=== PATIENT | female | born 1980 | race African-American/Black ===

== ENCOUNTER 2020-08-29 14:47 | Inpatient (IN) | payer OTHER, SELFPAY ==
--- NOTE | 2020-08-29 15:26 | ED_ITS ---
HPI - Psych General Chief Complaint: Psychiatric Symptoms Stated Complaint: crisis Time Seen by Provider: 08/29/20 15:26 History of Present Illness HPI Narrative: Patient just got out of [facility]. She was there for detox. Got into an argument and questionably thought about wanting to kill herself. Patient was sent to the emergency department for further evaluation. Patient denies having any specific plans. She denies any recreational drug use today. Denies any alcohol. No coughing or congestion or upper respiratory symptoms. Patient currently does not want to kill herself. She said she has no plans. Denies any alcohol abuse Review of Systems Review of Systems: Constitutional: No Weight loss, No Fever, No Chills, No Night Sweats, No Fatigue, No Malaise ENT/Mouth: No Hearing loss, No Ear Pain, No Nasal Congestion, No Sinus Pain, No Hoarseness, No sore throat, No Rhinorrhea, No Swallowing Difficulty Eyes: No Eye Pain, No Swelling, No Redness, No Foreign Body, No Discharge, No Vision Changes Cardiovascular: No Chest Pain, No SOB, No Dyspnea on Exertion, No Orthopnea, No Edema, No Palpitations Respiratory: No Cough, No Sputum, No Wheezing, No Smoke Exposure, No Dyspnea Gastrointestinal: No Nausea, No Vomiting, No Diarrhea, No Constipation, No abdominal Pain, No Hematochezia, No Melena Genitourinary: no irregular bleeding, No Dysuria, No Urinary Frequency, No Hematuria, No Urinary Incontinence, No Urgency, No Flank Pain, No Urinary Flow Changes, No Hesitancy Musculoskeletal: No joint pain, No Myalgias, No Joint Swelling Skin: No Skin Lesions, No rash Neuro: No Weakness, No Numbness, No Paresthesias, No Loss of Consciousness, No Dizziness, No Headache Psych: No Anxiety/Panic, No Depression, No SI/HI/AH/VH, No Social Issues, Heme/Lymph: No Bruising, No Bleeding,No Lymphadenopathy Endocrine: No Polyuria, No Polydipsia, No Temperature Intolerance [facility] Past Medical History Medical History (Updated 08/29/20 @ 15:53 by Jayne Short) Achilles tendinitis Asthma Sciatica Social History Social History Alcohol intake: former Smoking Status: Current every day smoker Smoked in Last 30 Days: Yes Use of substances other than those prescribed or required for medical reasons: Yes Substance Use Type: Crack/Cocaine and Heroin Substance Use Frequency: Chronic Longstanding Last Used Substance: Weeks (ago) Any prior treatment program specific to substance use: Yes Physical Exam Vital Signs: Vital Signs: Last Vital Signs Temp 98.4 F 08/29/20 15:46 Pulse 99 08/29/20 15:46 Resp 20 08/29/20 15:46 BP 148/88 H 08/29/20 15:46 Pulse Ox 96 08/29/20 15:46 Body Mass Index 48.3 Appearance: Alert. Oriented X3. No acute distress. Eyes: Pupils equal, round and reactive to light. ENT: Pharynx normal. Neck: Normal inspection. Neck supple. No lymph nodes noted. No crepitus CVS: Normal heart rate and rhythm. Pulses normal. Normal S1 and S2 Respiratory: No respiratory distress. Breath sounds normal. No Wheezing. No rales Abdomen: Soft and nontender. No rigidity. No distention. good BS x4 Skin: Skin warm and dry. Normal skin color. Normal skin turgor. Extremities: No lower extremity edema. Neurovascular intact to all extremities. No Lacerations. No Rash Neuro: Oriented X 3. No motor deficit. No sensory deficit. Moving all extermities. No slurred speech MDM - Psych MDM Narrative Medical decision making narrative: Patient medically cleared. Awaiting crisis evaluation. Restraints Face to Face Assessment: Face to Face Assessment: Current Situation: After assessment of the patient, a review of the pertinent medical record and a discussion with nursing staff, I feel the patient requires a restrain intervention. Reaction To: [] Medical Condition: [] Behavioral State: [] Continued Need: [] Lab Data Result diagrams: 08/29/20 16:05 08/29/20 16:05 Labs: Lab Results 08/29/20 Range/Units 16:05 WBC 7.4 (4.8-10.8) X10*3/uL RBC 4.16 L (4.20-5.50) X10*6/uL Hgb 12.1 (12.0-16.0) g/dl Hct 37.7 (37-47) % MCV 90.6 (80-98) fL MCH 29.1 (27.0-33.0) pg MCHC 32.1 (31.0-35.0) g/dl RDW 13.2 (11.0-16.0) % Plt Count 286 (160-400) X10*3/uL MPV 9.4 (9.4-12.3) fL Immature Gran % (Auto) 0.4 (0.0-0.4) % Neut % (Auto) 69.0 (45-73) % Lymph % (Auto) 20.1 (20-40) % Hale % (Auto) 5.1 (2-11) % Eos % (Auto) 4.9 H (0-4) % Baso % (Auto) 0.5 (0-2) % Lymph # (Auto) 1.5 (1.2-4.9) X10*3/uL Hale # (Auto) 0.4 (0.1-1.2) X10*3/uL Eos # (Auto) 0.4 (0.0-0.4) X10*3/uL Baso # (Auto) 0.0 (0.0-0.2) X10*3/uL Abs Immat Gran (auto) 0.03 (0.00-0.03) X10*3/uL Absolute Neuts (auto) 5.1 (2.0-8.3) X10*3/uL Absolute Nucleated RBC 0.000 (0.0-0.012) X10*3/uL Nucleated RBC % (auto) 0.0 (0.0-0.2) /100WBC Discharge Plan Discharge Clinical Impression: Suicidal ideation
[2020-08-29 15:46] VITALS: BP 148/88; PULSE 99; RESP 20; TEMP 36.9; O2SAT 96; BMI 48.3
[2020-08-29 16:00] VITALS: RESP 20
[2020-08-29 16:11] LABS: MANUAL DIFF FLAG NO
[2020-08-29 16:12] LABS: Basophils Percent Auto 0.5 % (0-2); Eosinophils Absolute Auto 0.4 X10*3/uL (0.0-0.4); Eosinophils Percent Auto 4.9 % (0-4); Hematocrit 37.7 % (37-47); Hemoglobin 12.1 g/dl (12.0-16.0); Imm Gran Abs Auto 0.03 X10*3/uL (0.00-0.03); Imm Gran Pct Auto 0.4 % (0.0-0.4); Lymphocytes Absolute Auto 1.5 X10*3/uL (1.2-4.9); Lymphocytes Percent Auto 20.1 % (20-40); Mean Corpuscular HGB Conc 32.1 g/dl (31.0-35.0); Mean Corpuscular Hemoglobin 29.1 pg (27.0-33.0); Mean Corpuscular Volume 90.6 fL (80-98); Mean Platelet Volume 9.4 fL (9.4-12.3); Monocytes Absolute Auto 0.4 X10*3/uL (0.1-1.2); Monocytes Percent Auto 5.1 % (2-11); Neutrophils Absolute Auto 5.1 X10*3/uL (2.0-8.3); Platelet Count 286 X10*3/uL (160-400); Red Blood Count 4.16 X10*6/uL (4.20-5.50); Red Cell Distribution Width 13.2 % (11.0-16.0); White Blood Count 7.4 X10*3/uL (4.8-10.8)
[2020-08-29 16:36] LABS: Ethanol < 10 mg/dL
[2020-08-29 16:38] LABS: Amphetamine Screen Urine Not Detected (Not Detect); Barbiturates, Urine Not Detected (Not Detect); Benzodiazepines Screen Urine Not Detected (Not Detect); Cannabinoid Screen Urine POSITIVE (Not Detect); Cocaine Screen Urine Not Detected (Not Detect); Opiate Screen Urine Not Detected (Not Detect); Phencyclidine Screen Urine Not Detected (Not Detect)
--- NOTE | 2020-08-29 16:40 | PC.NURSE ---
Med list faxed to pharmacy for med rec
[2020-08-29 16:43] LABS: Alanine Aminotransferase 34 U/L (0-31); Albumin Level 4.7 g/dL (3.5-5.0); Alkaline Phosphatase 94 U/L (39-117); Anion Gap 12 (12-20); Aspartate Amino Transferase 26 U/L (5-31); Bilirubin Total 0.3 mg/dL (0.0-1.0); Blood Urea Nitrogen 17 mg/dL (9-16); Calcium 9.4 mg/dL (8.4-10.2); Carbon Dioxide 27 mmol/L (22-29); Chloride 103 mmol/L (96-108); Creatinine Clr Calc Pharmacy 97.5; Estimated Glomerular Filt Rate > 60; Glucose Random 93 mg/dL (60-115); Potassium 4.2 mmol/l (3.3-5.1); Salicylate < 5.0 mg/dL (15-30); Sodium 138 mmol/L (135-145); Total Protein 7.8 g/dL (6.5-8.0)
--- NOTE | 2020-08-29 16:52 | PC.NURSE ---
[facility] Faxed. Pt continues to be pressured, on telephone, cooperative w/ care.
[2020-08-29 16:55] LABS: Acetaminophen LAB < 1 mcg/mL (<30)
--- NOTE | 2020-08-29 17:06 | PC.NURSE ---
[facility] called. Pt in room, coloring.
[2020-08-29 17:55] LABS: UPreg QC Valid YES; Urine Pregnancy NEGATIVE (NEGATIVE)
[2020-08-29 18:00] VITALS: RESP 20
[2020-08-29] MEDS: QUEtiapine Fumarate 25 MG TABLET PO (18:26)
[2020-08-29 18:31] VITALS: BP 147/90; PULSE 82
[2020-08-29] MEDS: cloNIDine HCL 0.1 MG TABLET PO (18:31)
--- NOTE | 2020-08-29 18:32 | PC.NURSE ---
Pt wearing Hijab- pt states she feels strongly that she needs to wear for yazdanism reasons. Pt denies SI. Reviewed w/ charge nurse, who spoke w/ boiler house supervisor. At this time, with the level of staffing available, pt may wear Hijab if closely monitored. Pt aware that this may change if staffing does not support current level of monitoring.
--- NOTE | 2020-08-29 18:56 | PC.NURSE ---
Report received. PT is standing at the nurse's station asking to use the phone. Calm and cooperative. PT waiting to be seen by [facility].
--- NOTE | 2020-08-29 19:22 | PC.NURSE ---
CARE team meeting with patient.
[2020-08-29 20:39] VITALS: BP 139/82; PULSE 80; RESP 18
[2020-08-29 20:41] VITALS: BP 139/80; PULSE 80
[2020-08-29] MEDS: Prazosin HCL 1 MG CAPSULE 3 MG PO (20:41)
[2020-08-29] MEDS: HaloperidoL 1 MG TABLET 2 MG PO (20:41)
[2020-08-29] MEDS: Gabapentin 400 MG CAPSULE 800 MG PO (20:41)
[2020-08-29] MEDS: OXcarbazepine 300 MG TABLET PO (20:41)
[2020-08-29] MEDS: Amitriptyline HCl 25 MG TABLET PO (20:41)
[2020-08-29] MEDS: traZODone HCL 100 MG TABLET PO (20:41)
--- NOTE | 2020-08-29 21:14 | PC.NURSE ---
Pt currently resting in bed, no complaints at this time, calm, cooperative.
--- NOTE | 2020-08-29 21:34 | MHC.CARE ---
Bedsearch note: CARE team completed bedsearch with 50 mile radius. The following units have no available female inpatient beds: [address] ([place]) [facility] ([place]) [facility] ([place]) [facility] ([place] and [place]) [facility] [place] (not open to referrals outside [place]) [facility] ([place]) reports they have one female bed left and are accepting referrals. CARE team will fax eval once complete. CARE team updated pod.
--- NOTE | 2020-08-29 22:41 | MHC.CARE ---
CARE team contacted [facility] at 19:00 re: pt who had been referred for crisis evaluation at 17:06. [facility] clothing worker reported that a clinician would not be available to evaluate the pt for a few hours. This keno writer / runner informed the worker that due to [facility]'s failure to evaluate the pt within the contracted time period that pt will be evaluated by the CARE team. [facility] will contact the insurance company to inform them that they were unable to evaluate the pt in a timely fashion so that an inpt psych prior auth can be acquired by the CARE team if necessary. This keno writer / runner evaluated pt with disposition for a voluntary inpt psychiatric admission. Pt is not at high risk for harm to self or others and her judgment is not impaired to the point where she would place herself in imminent risk for harm. Pt is agreeable to admission. ED physician is in agreement with plan of care. [facility] called to relay information that [facility] was called ([phone]) and spoke to Olga Lidia re: clinical being provided to them for prior auth by CARE team. [facility] has 1 female bed available this evening. Eval, labs, nursing notes, and vitals were faxed to [phone] at 22:35
--- NOTE | 2020-08-30 04:44 | PC.NURSE ---
PT woke up with complaints of not being able to fall back asleep. PT requested PRN medications for sleep but none were available as she took them all last night. Nurse suggested to PT that she try laying down for a little before asking the provider to order more medications. PT agreed to plan and went back to her room.
[2020-08-30 06:26] VITALS: RESP 18
--- NOTE | 2020-08-30 06:57 | PC.NURSE ---
Report received, pt currently sleeping, respirations even and unlabored, in no apparent distress. Pt is inpatient bedsearch.
[2020-08-30 10:02] VITALS: BP 133/61; PULSE 78; RESP 18; TEMP 35.8; O2SAT 96
[2020-08-30] MEDS: Nicotine 21 MG PATCH.TD24 TRANSDERMA (10:28)
[2020-08-30] MEDS: Gabapentin 400 MG CAPSULE 800 MG PO ×3 (10:29→21:02)
[2020-08-30] MEDS: HaloperidoL 1 MG TABLET 2 MG PO ×2 (10:29→21:00)
[2020-08-30] MEDS: buPROPion HCl XL 300 MG TAB.ER.24H PO (10:29)
[2020-08-30] MEDS: OXcarbazepine 300 MG TABLET PO ×2 (10:29→21:01)
[2020-08-30] MEDS: Buprenorphine HCL 2 MG TAB.SUBL 4 MG SUBLINGUAL (10:53)
--- NOTE | 2020-08-30 10:54 | MHC.CARE ---
Per [facility] no beds today, until Tuesday, please fax on Tuesday . Per bedsearch from second shift last night pts bedsearch is exhausted based on no female beds in list provided see CARE team note from last night).
[2020-08-30] MEDS: Metoclopramide HCl 10 MG TABLET PO (15:50)
--- NOTE | 2020-08-30 15:52 | PC.NURSE ---
PT currently resting, calm and cooperative, pt has thrown up multiple times today, medicated per emar. Pt denies other complaints, pleasant in conversation.
[2020-08-30 16:34] VITALS: BP 149/83; PULSE 66; RESP 20; TEMP 37.1; O2SAT 97
--- NOTE | 2020-08-30 18:54 | PC.NURSE ---
Report received. PT asked to take a shower. PT provided with bathing supplies. Calm and cooperative. Inpatient bed search in progress.
[2020-08-30 21:01] VITALS: BP 149/81; PULSE 88; RESP 20; TEMP 37.1; O2SAT 95
[2020-08-30] MEDS: cloNIDine HCL 0.1 MG TABLET PO (21:01)
[2020-08-30 21:03] VITALS: BP 149/81; PULSE 88
[2020-08-30] MEDS: Prazosin HCL 1 MG CAPSULE 3 MG PO (21:03)
[2020-08-30] MEDS: Amitriptyline HCl 25 MG TABLET PO (21:04)
--- NOTE | 2020-08-30 21:50 | PC.NURSE ---
PT has been vomiting all day after eating or drinking anything. PT received her night time meds with lidia helena and immediately started vomiting afterwards. PT's pills were visible and whole in the vomit bag provided to her prior to vomiting. Provider came to assess PT who reported no other complaints besides uncontrolled vomiting.
[2020-08-30] MEDS: diphenhydrAMINE HCL 25 MG TABLET PO (21:55)
[2020-08-31] VITALS (7 sets, daily range): BP systolic 110–155; BP diastolic 56–91; PULSE 69–74; RESP 16–19; TEMP 36.3–36.7; O2SAT 95–98
--- NOTE | 2020-08-31 06:26 | PC.NURSE ---
Tech went into the PT's room for vitals this morning and found a partially dissolved pill on the desk behind a foam cup. Pill was removed from the room and tech informed the nurse. Pill was unidentifiable as most of the surface was dissolved. PT asked about the pill on her desk and responded by saying that it had fallen out during med administration and forgotten because she was feeling sick.
--- NOTE | 2020-08-31 07:03 | PC.NURSE ---
Report received. PT currently walking around unit, calm and cooperative, denies complaints. PT asking to speak with care team, let her know that we would call care team once they arrive.
[2020-08-31] MEDS: Buprenorphine HCL 2 MG TAB.SUBL SUBLINGUAL ×2 (08:05→12:17)
[2020-08-31] MEDS: Nicotine 21 MG PATCH.TD24 TRANSDERMA (08:05)
[2020-08-31] MEDS: buPROPion HCl XL 300 MG TAB.ER.24H PO (08:05)
[2020-08-31] MEDS: Gabapentin 400 MG CAPSULE 800 MG PO ×3 (08:05→22:57)
[2020-08-31] MEDS: HaloperidoL 1 MG TABLET 2 MG PO ×2 (08:05→22:58)
[2020-08-31] MEDS: OXcarbazepine 300 MG TABLET PO ×2 (08:05→22:58)
--- NOTE | 2020-08-31 14:01 | MHC.CARE ---
Bedsearch exhausted, facilities are full for the weekend, said to call Tuesday.
[2020-08-31] MEDS: LORazepam 1 MG TABLET PO (15:14)
--- NOTE | 2020-08-31 15:17 | PC.NURSE ---
PT currently coloring, calm and cooperative. PT reported some anxiety and restlessness, requested ativan stated that the clonidine and seroquel make her sleepy and she wants to save those to help her sleep later. Provider notified, pt medicated per emar. Pt asking about bed search process, process explained.
[2020-08-31] MEDS: QUEtiapine Fumarate 25 MG TABLET PO (17:20)
[2020-08-31] MEDS: cloNIDine HCL 0.1 MG TABLET PO (17:20)
--- NOTE | 2020-08-31 19:12 | PC.NURSE ---
REPORT RECEIVED FROM PATRICK TOMAS. BOX CAR LOADER AT BEDSIDE SPEAKING WITH PATIENT AT THIS TIME. PATIENT IS CALM/COOPERATIVE, ABLE TO MAKE NEEDS KNOWN. VOLUNTARY BEDSEARCH, PLAN FOR INPATIENT ADMISSION. WILL CONTINUE TO MONITOR. SEEN BY CARE TEAM.
--- NOTE | 2020-08-31 20:51 | PC.NURSE ---
PATIENT REQUESTED AND GIVEN ICE WATER AND TURKEY SANDWICH. REMAINS CALM/COOPERATIVE, COLORING AND WATCHING TV.
--- NOTE | 2020-08-31 21:30 | PC.NURSE ---
AMITRIPTYLINE HCL 25MG AND MINIPRESS 3MG UNAVAILABLE IN ED AND [facility] PYXIS MACHINES. NURSING DEVELOPMENT ENG CALLED BUT UNABLE TO SPEAK AT THIS TIME. WILL MEDICATE ONCE MEDICATIONS ARE BROUGHT TO ED.
--- NOTE | 2020-08-31 22:17 | PC.NURSE ---
PHARMACY CONTACTED TO BRING AMITRIPTYLINE HCL 25MG AND MINIPRESS 3MG TO [facility] POD. WILL MEDICATE PATIENT UPON MEDICATIONS BEING BROUGHT TO THIS RN.
[2020-08-31] MEDS: Prazosin HCL 1 MG CAPSULE 3 MG PO (22:57)
[2020-08-31] MEDS: Amitriptyline HCl 25 MG TABLET PO (22:57)
--- NOTE | 2020-08-31 22:58 | PC.NURSE ---
PATIENT MEDICATED ORDERED. NO COMPLAINTS AT THIS TIME. WILL CONTINUE TO MONITOR.
[2020-09-01] VITALS (7 sets, daily range): BP systolic 132–149; BP diastolic 79–82; PULSE 75–89; RESP 17–20; TEMP 36.6–36.8; O2SAT 95–98
--- NOTE | 2020-09-01 02:50 | PC.NURSE ---
PATIENT SLEEPING AT THIS TIME. RESPIRATIONS EVEN/UNLABORED. NO ACUTE DISTRESS NOTED. WILL CONTINUE TO MONITOR.
--- NOTE | 2020-09-01 07:18 | PC.NURSE ---
Report received from Isabel. NGUYEN. Pt resting, resp unlabored.
[2020-09-01] MEDS: HaloperidoL 1 MG TABLET 2 MG PO ×2 (09:23→20:27)
[2020-09-01] MEDS: Gabapentin 400 MG CAPSULE 800 MG PO ×3 (09:23→20:27)
[2020-09-01] MEDS: Buprenorphine HCL 2 MG TAB.SUBL SUBLINGUAL ×2 (09:23)
[2020-09-01] MEDS: OXcarbazepine 300 MG TABLET PO ×2 (09:23→20:27)
[2020-09-01] MEDS: buPROPion HCl XL 300 MG TAB.ER.24H PO (09:24)
--- NOTE | 2020-09-01 09:47 | PC.NURSE ---
Care team in to evaluate pt
--- NOTE | 2020-09-01 10:22 | MHC.CARE ---
Met with patient in 3 to discuss her disposition, she easily engaged easily, alert and oriented but tearful, speech pressured, she was restless did stop swaying and reorganizing her belongings. She stated that if discharged she would kill herself anyway possible even if she had to break her skull on a wall or the floor. Reported that she feels unable to control the thoughts of suicide and considers it the best plan if she cannot get the help she needs. Patient explained that she has visual and hallucinations which feel helpful to her as they, ?tell me what I need to do,? but when on medication they disappear. In the past she has stopped taking medication in order experience the hallucinations which felt helpful. At this time patient said she knows that she is not properly medicated because she continues to hear voices, is willing to accept adjustments so she can get the treatment she needs.
[2020-09-01 10:33] LABS: COVID-19 Test Negative (Negative)
[2020-09-01] MEDS: Nicotine 21 MG PATCH.TD24 TRANSDERMA (10:46)
[2020-09-01] MEDS: cloNIDine HCL 0.1 MG TABLET PO (11:22)
[2020-09-01] MEDS: QUEtiapine Fumarate 25 MG TABLET PO ×2 (11:32→23:11)
--- NOTE | 2020-09-01 13:47 | PC.NURSE ---
Pt accepted to [facility] is aware, and in agreement w/ plan. Pt affect bright, conversing with another patient, coloring in common area.
--- NOTE | 2020-09-01 15:19 | MHC.CARE ---
1500 [facility] returned call to accept clinical information about patient. Kiara Bowling stated that she needs to hear from [facility] today to see if they still cannot see the patient before they will give authorization. Said that although [facility] did call on 08/29 to say they could not assess patient, since there were no updates since then, [facility] needs to hear from [facility] directly. 1310 Call to [facility], information will be passed to a specialty department supervisor.
[2020-09-01] MEDS: Acetaminophen 325 MG TABLET 650 MG PO (16:30)
--- NOTE | 2020-09-01 17:17 | PC.NURSE ---
Pt awake, alert. Awaiting transfer to . Pt currently on the telephone.
--- NOTE | 2020-09-01 20:02 | PC.NURSE ---
Patient calm and cooperative, communicates needs well, good behavioral control, RN to RN completed with [facility], reported being anxious. VSS. Will continue to monitor.
[2020-09-01] MEDS: LORazepam 1 MG TABLET PO (20:27)
[2020-09-01] MEDS: Prazosin HCL 1 MG CAPSULE 3 MG PO (20:58)
[2020-09-01] MEDS: Amitriptyline HCl 25 MG TABLET PO (20:59)
[2020-09-01] MEDS: traZODone HCL 100 MG TABLET PO (23:11)
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
[2020-09-02 06:00] VITALS: BP 125/65; PULSE 85
[2020-09-02] MEDS: OXcarbazepine 300 MG TABLET PO ×2 (08:44→20:51)
[2020-09-02] MEDS: buPROPion HCl XL 300 MG TAB.ER.24H PO (08:45)
[2020-09-02] MEDS: Gabapentin 400 MG CAPSULE 800 MG PO ×3 (08:45→20:50)
[2020-09-02] MEDS: HaloperidoL 1 MG TABLET 2 MG PO ×2 (08:46→20:50)
[2020-09-02] MEDS: Nicotine 21 MG PATCH.TD24 TRANSDERMA (08:51)
[2020-09-02] MEDS: Buprenorphine HCL 2 MG TAB.SUBL SUBLINGUAL (11:08)
[2020-09-02 18:00] VITALS: BP 157/102; PULSE 82; TEMP 36.2
[2020-09-02] MEDS: traZODone HCL 100 MG TABLET PO (20:50)
[2020-09-02 20:51] VITALS: BP 151/95; PULSE 81
[2020-09-02] MEDS: QUEtiapine Fumarate 25 MG TABLET PO (20:51)
[2020-09-02] MEDS: cloNIDine HCL 0.1 MG TABLET PO (20:51)
[2020-09-02 20:52] VITALS: BP 151/95; PULSE 81
[2020-09-02] MEDS: Prazosin HCL 1 MG CAPSULE 3 MG PO (20:52)
[2020-09-02] MEDS: Amitriptyline HCl 25 MG TABLET PO (20:53)
[2020-09-02] MEDS: Celecoxib 100 MG CAPSULE PO (20:56)
[2020-09-03 06:25] VITALS: BP 109/59; PULSE 77; RESP 18; TEMP 37
--- NOTE | 2020-09-03 07:48 | P.PNPSI_ITS ---
Subjective Subjective Date of Service: 09/03/20 Reason For Visit: crisis Subjective Notes: Conditional Voluntary Interim History: Pt re[ports poor sleep. Verbalizes high motivation to return to [facility]. No SI/HI. Feels cared for and listened to. Good response to Haldol. Medication Compliance: Yes Side effects from medications: No Attending Groups: Yes Review of Systems Review of Systems Yes all other systems are reviewed and are negative Mental Status Exam Mental Status Exam Patient Appearance: Well Grooomed Patient Orientation: Person, Place, Time and Situation Level of Consciousness: Awake Patient Behavior: Appropriate Mood Description: Calm, Depressed and Anxious Affect Description: Depressed and Fearful Ability to Follow Directions: Excellent Speech Pattern: Clear Memory Description: Intact Hallucinations: None Delusions: Not Present Thought Process: Intact Thought Content: positive for Suicidal Ideation (resolving) Depressive Symptoms: Muscle Tension Judgement: Fair Diagnostics Vital Signs (24Hr): Vital Signs - 24 hr 09/02/20 18:00 09/02/20 20:51 09/02/20 20:52 Temperature 97.1 F Pulse Rate 82 81 81 Respiratory Rate Blood Pressure 157/102 H 151/95 H 151/95 H 09/03/20 06:25 Temperature 98.6 F Pulse Rate 77 Respiratory Rate 18 Blood Pressure 109/59 L Body Mass Index 48.3 Labs Results: 08/29/20 16:05 08/29/20 16:05 Labs: Laboratory Results - last 48 hr 09/01/20 10:09 COVID-19 (JARON) Negative COVID-19 Clin Com See Note Medications Medications Current Medications Generic Name Dose Route Start Last Admin Trade Name Freq PRN Reason Stop Dose Admin Al Hydroxide/Mg Hydroxide 30 ml 09/01/20 21:23 Magnesium Hydrox/Alum Hydrox 30 Ml Oral.Susp PO Q6H PRN Heartburn/Nausea Amitriptyline HCl 25 mg 08/29/20 21:00 09/02/20 20:53 Amitriptyline Hcl 25 Mg Tablet PO 25 mg BEDTIME AZUL Administration Buprenorphine HCl 2 mg 08/31/20 09:00 09/02/20 11:08 Buprenorphine Hcl 2 Mg Tab.Subl SUBLINGUAL 2 mg DAILY AZUL Administration Bupropion HCl 300 mg 08/30/20 09:00 09/02/20 08:45 Bupropion Hcl Xl 300 Mg Tab.Er.24h PO 300 mg DAILY AZUL Administration Celecoxib 100 mg 08/29/20 16:58 09/02/20 20:56 Celecoxib 100 Mg Capsule PO 100 mg BID PRN Administration Pain Clonidine HCl 0.1 mg 08/29/20 16:58 09/02/20 20:51 Clonidine Hcl 0.1 Mg Tablet PO 0.1 mg QID PRN Administration Anxiety Protocol Cyclobenzaprine HCl 5 mg 08/29/20 21:00 Cyclobenzaprine Hcl 5 Mg Tablet PO TID PRN Muscle Spasm Fluticasone Propionate 1 spray 08/29/20 16:58 Fluticasone Propionate Nasal [address] [place] NOSTRIL-B DAILY PRN Allergy Symptoms Gabapentin 800 mg 08/29/20 21:00 09/02/20 20:50 Gabapentin 400 Mg Capsule PO 800 mg TID AZUL Administration Haloperidol 2 mg 08/29/20 21:00 09/02/20 20:50 Haloperidol 1 Mg Tablet PO 2 mg BID AZUL Administration Loratadine 10 mg 08/30/20 11:29 Loratadine 10 Mg Tablet PO DAILY PRN Allergic Symptoms Magnesium Hydroxide 30 ml 09/01/20 21:23 Milk Of Magnesia 30 Ml Oral.Susp PO DAILY PRN Constipation Nicotine 21 mg 08/30/20 09:00 09/02/20 08:51 Nicotine 21 Mg Patch.Td24 TRANSDERMA 21 mg DAILY AZUL Administration Nicotine Polacrilex 2 mg 08/29/20 17:24 08/31/20 17:20 Nicotine Polacrilex 2 Mg Lozenge BUCCAL 2 mg Q2H PRN Administration Nicotine Cravings Ondansetron HCl 4 mg 08/29/20 16:58 Ondansetron Odt 4 Mg Tab.Rapdis TRANSLINGU DAILY PRN Nausea Oxcarbazepine 300 mg 08/29/20 21:00 09/02/20 20:51 Oxcarbazepine 300 Mg Tablet PO 300 mg BID AZUL Administration Oxybutynin Chloride 10 mg 08/30/20 09:00 09/02/20 08:45 Oxybutynin Chloride Er 5 Mg Tab.Er.24 PO 10 mg DAILY AZUL Administration Prazosin HCl 3 mg 08/29/20 21:00 09/02/20 20:52 Prazosin Hcl 1 Mg Capsule PO 3 mg BEDTIME AZUL Administration Protocol Quetiapine Fumarate 25 mg 09/01/20 21:47 09/02/20 20:51 Quetiapine Fumarate 25 Mg Tablet PO 25 mg RQ4H PRN Administration Agitation Trazodone HCl 100 mg 08/29/20 16:58 09/02/20 20:50 Trazodone Hcl 100 Mg Tablet PO 100 mg BEDTIME PRN Administration Sleep Allergies Allergies Allergy/AdvReac Type Severity Reaction Status Date / Time bee pollen [bee stings] Allergy Swelling Verified 08/29/20 16:30 shellfish derived Allergy Swelling Verified 08/29/20 16:30 ibuprofen [From Motrin] AdvReac Abdominal Verified 08/29/20 16:30 Pain iron AdvReac Abdominal Verified 08/29/20 16:30 Pain naloxone AdvReac Vomiting Verified 08/29/20 16:30 Assessment & Plan Greater than 50% of the session was spent on counseling and/or coordination of care Ct meds. Check for SEs. Apply to CSS. Patient educated on: diagnosis Informed Consent: understands
[2020-09-03] MEDS: Gabapentin 400 MG CAPSULE 800 MG PO ×3 (09:14→21:26)
[2020-09-03] MEDS: OXcarbazepine 300 MG TABLET PO ×2 (09:15→21:26)
[2020-09-03] MEDS: HaloperidoL 1 MG TABLET 2 MG PO ×2 (09:16→21:27)
[2020-09-03] MEDS: Nicotine 21 MG PATCH.TD24 TRANSDERMA (09:17)
[2020-09-03] MEDS: buPROPion HCL 100 MG TABLET 150 MG PO ×2 (10:00→14:26)
[2020-09-03] MEDS: Buprenorphine HCL 2 MG TAB.SUBL SUBLINGUAL (12:30)
[2020-09-03] MEDS: Celecoxib 100 MG CAPSULE PO (17:01)
[2020-09-03] MEDS: Cyclobenzaprine HCl 5 MG TABLET PO (17:06)
[2020-09-03] MEDS: Amitriptyline HCl 25 MG TABLET PO (21:26)
[2020-09-03 21:27] VITALS: BP 156/82; PULSE 92
[2020-09-03] MEDS: Prazosin HCL 1 MG CAPSULE 3 MG PO (21:27)
[2020-09-03 21:30] VITALS: BP 156/82; PULSE 92; TEMP 36.7
[2020-09-04 06:20] VITALS: BP 137/69; PULSE 85; RESP 18; TEMP 36.6; O2SAT 96
--- NOTE | 2020-09-04 06:44 | P.PNPSI_ITS ---
Subjective Subjective Date of Service: 09/04/20 Reason For Visit: crisis Interim History: Pt reports poor sleep. Verbalizes high motivation to return to [facility]. No SI/HI. Feels cared for and listened to. Good response to Haldol. DC Seroquel. Await CSS referral Review of Systems Review of Systems Constitutional: No Weight loss, No Fever, No Chills, No Night Sweats, No Fatigue, No Malaise ENT/Mouth: No Hearing loss, No Ear Pain, No Nasal Congestion, No Sinus Pain, No Hoarseness, No sore throat, No Rhinorrhea, No Swallowing Difficulty Eyes: No Eye Pain, No Swelling, No Redness, No Foreign Body, No Discharge, No V ision Changes Cardiovascular: No Chest Pain, No SOB, No Dyspnea on Exertion, No Orthopnea, No Edema, No Palpitations Respiratory: No Cough, No Sputum, No Wheezing, No Smoke Exposure, No Dyspnea Gastrointestinal: No Nausea, No Vomiting, No Diarrhea, No Constipation, No abdominal Pain, No Hematochezia, No Melena Genitourinary: no irregular bleeding, No Dysuria, No Urinary Frequency, No Hematuria, No Urinary Incontinence, No Urgency, No Flank Pain, No Urinary Flow Changes, No Hesitancy Musculoskeletal: No joint pain, No Myalgias, No Joint Swelling Skin: No Skin Lesions, No rash Neuro: No Weakness, No Numbness, No Paresthesias, No Loss of Consciousness, No Dizziness, No Headache Psych: No Anxiety/Panic, No Depression, No SI/HI/AH/VH, No Social Issues, Heme/Lymph: No Bruising, No Bleeding,No Lymphadenopathy Endocrine: No Polyuria, No Polydipsia, No Temperature Intolerance Mental Status Exam Mental Status Exam Patient Appearance: Well Grooomed Patient Orientation: Person, Place, Time and Situation Level of Consciousness: Awake Patient Behavior: Appropriate Mood Description: Calm, Depressed and Anxious Affect Description: Depressed and Fearful Patient Cognition Impaired: No Ability to Follow Directions: Excellent Speech Pattern: Clear Memory Description: Intact Diagnostics Vital Signs (24Hr): Vital Signs - 24 hr 09/03/20 21:27 09/03/20 21:30 Temperature 98.0 F Pulse Rate 92 92 Blood Pressure 156/82 H 156/82 H Body Mass Index 48.3 Labs Results: 08/29/20 16:05 08/29/20 16:05 Medications Medications Current Medications Generic Name Dose Route Start Last Admin Trade Name Freq PRN Reason Stop Dose Admin Al Hydroxide/Mg Hydroxide 30 ml 09/01/20 21:23 Magnesium Hydrox/Alum Hydrox 30 Ml Oral.Susp PO Q6H PRN Heartburn/Nausea Amitriptyline HCl 25 mg 08/29/20 21:00 09/03/20 21:26 Amitriptyline Hcl 25 Mg Tablet PO 25 mg BEDTIME AZUL Administration Buprenorphine HCl 2 mg 08/31/20 09:00 09/03/20 12:30 Buprenorphine Hcl 2 Mg Tab.Subl SUBLINGUAL 2 mg DAILY AZUL Administration Bupropion HCl 150 mg 09/03/20 09:22 09/03/20 14:26 Bupropion Hcl 100 Mg Tablet PO 150 mg BID@0830,1330 AZUL Administration Celecoxib 100 mg 08/29/20 16:58 09/03/20 17:01 Celecoxib 100 Mg Capsule PO 100 mg BID PRN Administration Pain Clonidine HCl 0.1 mg 08/29/20 16:58 09/02/20 20:51 Clonidine Hcl 0.1 Mg Tablet PO 0.1 mg QID PRN Administration Anxiety Protocol Cyclobenzaprine HCl 5 mg 08/29/20 21:00 09/03/20 17:06 Cyclobenzaprine Hcl 5 Mg Tablet PO 5 mg TID PRN Administration Muscle Spasm Fluticasone Propionate 1 spray 08/29/20 16:58 Fluticasone Propionate Nasal 16 Gm [place] NOSTRIL-B DAILY PRN Allergy Symptoms Gabapentin 800 mg 08/29/20 21:00 09/03/20 21:26 Gabapentin 400 Mg Capsule PO 800 mg TID AZUL Administration Haloperidol 2 mg 08/29/20 21:00 09/03/20 21:27 Haloperidol 1 Mg Tablet PO 2 mg BID AZUL Administration Loratadine 10 mg 08/30/20 11:29 Loratadine 10 Mg Tablet PO DAILY PRN Allergic Symptoms Magnesium Hydroxide 30 ml 09/01/20 21:23 Milk Of Magnesia 30 Ml Oral.Susp PO DAILY PRN Constipation Nicotine 21 mg 08/30/20 09:00 09/03/20 09:17 Nicotine 21 Mg Patch.Td24 TRANSDERMA 21 mg DAILY AZUL Administration Nicotine Polacrilex 2 mg 08/29/20 17:24 08/31/20 17:20 Nicotine Polacrilex 2 Mg Lozenge BUCCAL 2 mg Q2H PRN Administration Nicotine Cravings Ondansetron HCl 4 mg 08/29/20 16:58 Ondansetron Odt 4 Mg Tab.Rapdis TRANSLINGU DAILY PRN Nausea Oxcarbazepine 300 mg 08/29/20 21:00 09/03/20 21:26 Oxcarbazepine 300 Mg Tablet PO 300 mg BID AZUL Administration Oxybutynin Chloride 10 mg 08/30/20 09:00 09/03/20 09:15 Oxybutynin Chloride Er 5 Mg Tab.Er.24 PO 10 mg DAILY AZUL Administration Prazosin HCl 3 mg 08/29/20 21:00 09/03/20 21:27 Prazosin Hcl 1 Mg Capsule PO 3 mg BEDTIME AZUL Administration Protocol Quetiapine Fumarate 25 mg 09/01/20 21:47 09/02/20 20:51 Quetiapine Fumarate 25 Mg Tablet PO 25 mg RQ4H PRN Administration Agitation Trazodone HCl 100 mg 08/29/20 16:58 09/02/20 20:50 Trazodone Hcl 100 Mg Tablet PO 100 mg BEDTIME PRN Administration Sleep Allergies Allergies Allergy/AdvReac Type Severity Reaction Status Date / Time bee pollen [bee stings] Allergy Swelling Verified 08/29/20 16:30 shellfish derived Allergy Swelling Verified 08/29/20 16:30 ibuprofen [From Motrin] AdvReac Abdominal Verified 08/29/20 16:30 Pain iron AdvReac Abdominal Verified 08/29/20 16:30 Pain naloxone AdvReac Vomiting Verified 08/29/20 16:30 Assessment & Plan Assessment & Plan (1) Posttraumatic stress disorder: Status: Acute Code(s): F43.10 - Post-traumatic stress disorder, unspecified (2) Major depressive disorder, recurrent: Status: Acute Code(s): F33.9 - Major depressive disorder, recurrent, unspecified (3) Borderline personality disorder: Status: Acute Code(s): F60.3 - Borderline personality disorder (4) Polysubstance dependence in early, early partial, sustained full, or sustained partial remission: Status: Acute Code(s): F19.21 - Other psychoactive substance dependence, in remission Assessment and Plan: q15 cv Ct meds. Increase Haldol Refer to CSS. Greater than 50% of the session was spent on counseling and/or coordination of care Ct meds. Haldol/DC Seroquel. CSS referral
[2020-09-04 08:54] LABS: Cholesterol 213 mg/dL; Glucose Fasting 92 mg/dL (60-99); HDL Cholesterol 49 mg/dL; LDL Cholesterol Calculated 138 mg/dl; Triglycerides 134 mg/dL
[2020-09-04] MEDS: Nicotine 21 MG PATCH.TD24 TRANSDERMA (08:55)
[2020-09-04] MEDS: Gabapentin 400 MG CAPSULE 800 MG PO ×3 (08:57→21:19)
[2020-09-04] MEDS: OXcarbazepine 300 MG TABLET PO ×2 (08:58→21:20)
[2020-09-04] MEDS: buPROPion HCL 100 MG TABLET 150 MG PO ×2 (08:58→14:30)
[2020-09-04] MEDS: Buprenorphine HCL 2 MG TAB.SUBL SUBLINGUAL (08:58)
[2020-09-04] MEDS: HaloperidoL 1 MG TABLET 2 MG PO (08:59)
[2020-09-04] MEDS: Celecoxib 100 MG CAPSULE PO (21:18)
[2020-09-04] MEDS: Cyclobenzaprine HCl 5 MG TABLET PO (21:18)
[2020-09-04] MEDS: HaloperidoL 5 MG TABLET PO (21:19)
[2020-09-04] MEDS: Amitriptyline HCl 25 MG TABLET PO (21:19)
[2020-09-04 21:20] VITALS: BP 156/93; PULSE 82
[2020-09-04] MEDS: Prazosin HCL 1 MG CAPSULE 3 MG PO (21:20)
[2020-09-04 21:27] VITALS: BP 156/93; PULSE 82; TEMP 36.3
[2020-09-04] MEDS: traZODone HCL 100 MG TABLET PO (23:15)
[2020-09-04 23:51] VITALS: BP 133/65; PULSE 107
[2020-09-04] MEDS: cloNIDine HCL 0.1 MG TABLET PO (23:51)
[2020-09-05 06:00] VITALS: PULSE 84; TEMP 36.3; O2SAT 94
--- NOTE | 2020-09-05 06:27 | P.PNPSI_ITS ---
Subjective Subjective Date of Service: 09/05/20 Reason For Visit: crisis Subjective Notes: Conditional Voluntary Interim History: Improving mood. Active in group. CSS pending. Medication Compliance: Yes Side effects from medications: No Attending Groups: Yes Review of Systems Review of Systems Constitutional: No Weight loss, No Fever, No Chills, No Night Sweats, No Fatigue, No Malaise ENT/Mouth: No Hearing loss, No Ear Pain, No Nasal Congestion, No Sinus Pain, No Hoarseness, No sore throat, No Rhinorrhea, No Swallowing Difficulty Eyes: No Eye Pain, No Swelling, No Redness, No Foreign Body, No Discharge, No Vision Changes Cardiovascular: No Chest Pain, No SOB, No Dyspnea on Exertion, No Orthopnea, No Edema, No Palpitations Respiratory: No Cough, No Sputum, No Wheezing, No Smoke Exposure, No Dyspnea Gastrointestinal: No Nausea, No Vomiting, No Diarrhea, No Constipation, No abdominal Pain, No Hematochezia, No Melena Genitourinary: no irregular bleeding, No Dysuria, No Urinary Frequency, No Hematuria, No Urinary Incontinence, No Urgency, No Flank Pain, No Urinary Flow Changes, No Hesitancy Musculoskeletal: No joint pain, No Myalgias, No Joint Swelling Skin: No Skin Lesions, No rash Neuro: No Weakness, No Numbness, No Paresthesias, No Loss of Consciousness, No Dizziness, No Headache Psych: No Anxiety/Panic, No Depression, No SI/HI/AH/VH, No Social Issues, Heme/Lymph: No Bruising, No Bleeding,No Lymphadenopathy Endocrine: No Polyuria, No Polydipsia, No Temperature Intolerance Yes all other systems are reviewed and are negative Mental Status Exam Mental Status Exam Patient Appearance: Well Grooomed Patient Orientation: Person, Place, Time and Situation Level of Consciousness: Awake Patient Behavior: Appropriate Mood Description: Calm, Depressed and Anxious Affect Description: Depressed and Fearful Patient Cognition Impaired: No Ability to Follow Directions: Excellent Speech Pattern: Clear Memory Description: Intact Diagnostics Vital Signs (24Hr): Vital Signs - 24 hr 09/04/20 21:20 09/04/20 21:27 09/04/20 23:51 Temperature 97.3 F Pulse Rate 82 82 107 H Blood Pressure 156/93 H 156/93 H 133/65 Body Mass Index 48.3 Labs Results: 08/29/20 16:05 08/29/20 16:05 Labs: Laboratory Results - last 48 hr 09/04/20 08:20 Fasting Glucose 92 Triglycerides 134 Cholesterol 213 LDL Cholesterol, Calc 138 HDL Cholesterol 49 Medications Medications Current Medications Generic Name Dose Route Start Last Admin Trade Name Freq PRN Reason Stop Dose Admin Al Hydroxide/Mg Hydroxide 30 ml 09/01/20 21:23 Magnesium Hydrox/Alum Hydrox 30 Ml Oral.Susp PO Q6H PRN Heartburn/Nausea Amitriptyline HCl 25 mg 08/29/20 21:00 09/04/20 21:19 Amitriptyline Hcl 25 Mg Tablet PO 25 mg BEDTIME AZUL Administration Buprenorphine HCl 2 mg 08/31/20 09:00 09/04/20 08:58 Buprenorphine Hcl 2 Mg Tab.Subl SUBLINGUAL 2 mg DAILY AZUL Administration Bupropion HCl 150 mg 09/03/20 09:22 09/04/20 14:30 Bupropion Hcl 100 Mg Tablet PO 150 mg BID@0830,1330 AZLU Administration Celecoxib 100 mg 08/29/20 16:58 09/04/20 21:18 Celecoxib 100 Mg Capsule PO 100 mg BID PRN Administration Pain Clonidine HCl 0.1 mg 08/29/20 16:58 09/04/20 23:51 Clonidine Hcl 0.1 Mg Tablet PO 0.1 mg QID PRN Administration Anxiety Protocol Cyclobenzaprine HCl 5 mg 08/29/20 21:00 09/04/20 21:18 Cyclobenzaprine Hcl 5 Mg Tablet PO 5 mg TID PRN Administration Muscle Spasm Fluticasone Propionate 1 spray 08/29/20 16:58 Fluticasone Propionate Nasal 16 Gm [place] NOSTRIL-B DAILY PRN Allergy Symptoms Gabapentin 800 mg 08/29/20 21:00 09/04/20 21:19 Gabapentin 400 Mg Capsule PO 800 mg TID AZUL Administration Haloperidol 5 mg 09/04/20 21:00 09/04/20 21:19 Haloperidol 5 Mg Tablet PO 5 mg BID AZUL Administration Loratadine 10 mg 08/30/20 11:29 Loratadine 10 Mg Tablet PO DAILY PRN Allergic Symptoms Magnesium Hydroxide 30 ml 09/01/20 21:23 Milk Of Magnesia 30 Ml Oral.Susp PO DAILY PRN Constipation Nicotine 21 mg 08/30/20 09:00 09/04/20 08:55 Nicotine 21 Mg Patch.Td24 TRANSDERMA 21 mg DAILY AZUL Administration Nicotine Polacrilex 2 mg 08/29/20 17:24 08/31/20 17:20 Nicotine Polacrilex 2 Mg Lozenge BUCCAL 2 mg Q2H PRN Administration Nicotine Cravings Ondansetron HCl 4 mg 08/29/20 16:58 Ondansetron Odt 4 Mg Tab.Rapdis TRANSLINGU DAILY PRN Nausea Oxcarbazepine 300 mg 08/29/20 21:00 09/04/20 21:20 Oxcarbazepine 300 Mg Tablet PO 300 mg BID AZUL Administration Oxybutynin Chloride 10 mg 08/30/20 09:00 09/04/20 08:58 Oxybutynin Chloride Er 5 Mg Tab.Er.24 PO 10 mg DAILY AZUL Administration Prazosin HCl 3 mg 08/29/20 21:00 09/04/20 21:20 Prazosin Hcl 1 Mg Capsule PO 3 mg BEDTIME AZUL Administration Protocol Trazodone HCl 100 mg 08/29/20 16:58 09/04/20 23:15 Trazodone Hcl 100 Mg Tablet PO 100 mg BEDTIME PRN Administration Sleep Allergies Allergies Allergy/AdvReac Type Severity Reaction Status Date / Time bee pollen [bee stings] Allergy Swelling Verified 08/29/20 16:30 shellfish derived Allergy Swelling Verified 08/29/20 16:30 ibuprofen [From Motrin] AdvReac Abdominal Verified 08/29/20 16:30 Pain iron AdvReac Abdominal Verified 08/29/20 16:30 Pain naloxone AdvReac Vomiting Verified 08/29/20 16:30 Assessment & Plan Assessment & Plan (1) Posttraumatic stress disorder: Status: Acute Code(s): F43.10 - Post-traumatic stress disorder, unspecified (2) Major depressive disorder, recurrent: Status: Acute Code(s): F33.9 - Major depressive disorder, recurrent, unspecified (3) Borderline personality disorder: Status: Acute Code(s): F60.3 - Borderline personality disorder (4) Polysubstance dependence in early, early partial, sustained full, or sustained partial remission: Status: Acute Code(s): F19.21 - Other psychoactive substance dependence, in remission Assessment and Plan: q15 cv Ct meds. Increase Haldol Refer to CSS. Greater than 50% of the session was spent on counseling and/or coordination of care
[2020-09-05] MEDS: Nicotine 21 MG PATCH.TD24 TRANSDERMA (08:52)
[2020-09-05] MEDS: OXcarbazepine 300 MG TABLET PO ×2 (08:53→20:38)
[2020-09-05] MEDS: buPROPion HCL 100 MG TABLET 150 MG PO ×2 (08:53→13:33)
[2020-09-05] MEDS: HaloperidoL 5 MG TABLET PO ×2 (08:53→20:38)
[2020-09-05] MEDS: Gabapentin 400 MG CAPSULE 800 MG PO ×3 (08:53→20:38)
[2020-09-05] MEDS: Buprenorphine HCL 2 MG TAB.SUBL SUBLINGUAL (08:54)
[2020-09-05 18:00] VITALS: BP 142/84; PULSE 80; TEMP 36.4
[2020-09-05] MEDS: Mineral Oil/Petrolatum,White 106 GM Tube 1 APPL TOPICAL (20:37)
[2020-09-05 20:38] VITALS: BP 142/84; PULSE 80
[2020-09-05] MEDS: Amitriptyline HCl 25 MG TABLET PO (20:38)
[2020-09-05] MEDS: Prazosin HCL 1 MG CAPSULE 3 MG PO (20:38)
[2020-09-05] MEDS: traZODone HCL 100 MG TABLET PO (22:48)
[2020-09-06 06:00] VITALS: BP 135/83; PULSE 92; TEMP 37
[2020-09-06] MEDS: buPROPion HCL 100 MG TABLET 150 MG PO ×2 (09:02→13:26)
[2020-09-06] MEDS: OXcarbazepine 300 MG TABLET PO ×2 (09:02→20:19)
[2020-09-06] MEDS: Gabapentin 400 MG CAPSULE 800 MG PO ×3 (09:02→20:19)
[2020-09-06] MEDS: Nicotine 21 MG PATCH.TD24 TRANSDERMA (09:03)
[2020-09-06] MEDS: HaloperidoL 5 MG TABLET PO ×2 (09:03→20:19)
[2020-09-06] MEDS: Mineral Oil/Petrolatum,White 106 GM Tube 1 APPL TOPICAL ×3 (09:54→21:51)
[2020-09-06] MEDS: Buprenorphine HCL 2 MG TAB.SUBL SUBLINGUAL (10:09)
--- NOTE | 2020-09-06 11:03 | HO.PSYCHPN ---
Subjective Subjective Date of Service: 09/06/20 Reason For Visit: crisis Subjective Notes: Conditional Voluntary Interim History: Pt feeling really good about her stay here, hoping to go back to [facility] but if they won't take her wants to go to [facility] says she stupidly tried to take extra meds to feel better while at [facility] so not sure they will take her back She did become agitated when redirected around her phone and walking away from desk yelling at staff for redirecting her Medication Compliance: Yes Side effects from medications: No Attending Groups: Yes Review of Systems Acute medical concerns: No Medical Review of Systems: unchanged Mental Status Exam Mental Status Exam Patient Appearance: Well Grooomed Patient Orientation: Person, Place, Time and Situation Level of Consciousness: Awake Patient Behavior: Appropriate and Talkative Mood Description: Calm Affect Description: Labile Patient Cognition Impaired: No Ability to Follow Directions: Fair Speech Pattern: Clear Memory Description: Intact Hallucinations: None Thought Process: Intact Judgement: Fair Diagnostics Vital Signs (24Hr): Vital Signs - 24 hr 09/05/20 18:00 09/05/20 20:38 09/06/20 06:00 Temperature 97.5 F 98.6 F Pulse Rate 80 80 92 Blood Pressure 142/84 H 142/84 H 135/83 Body Mass Index 48.3 Labs Results: 08/29/20 16:05 08/29/20 16:05 Medications Medications Current Medications Generic Name Dose Route Start Last Admin Trade Name Freq PRN Reason Stop Dose Admin Al Hydroxide/Mg Hydroxide 30 ml 09/01/20 21:23 Magnesium Hydrox/Alum Hydrox 30 Ml Oral.Susp PO Q6H PRN Heartburn/Nausea Amitriptyline HCl 25 mg 08/29/20 21:00 09/05/20 20:38 Amitriptyline Hcl 25 Mg Tablet PO 25 mg BEDTIME AZUL Administration Buprenorphine HCl 2 mg 08/31/20 09:00 09/06/20 10:09 Buprenorphine Hcl 2 Mg Tab.Subl SUBLINGUAL 2 mg DAILY AZUL Administration Bupropion HCl 150 mg 09/03/20 09:22 09/06/20 09:02 Bupropion Hcl 100 Mg Tablet PO 150 mg BID@0830,1330 AZUL Administration Celecoxib 100 mg 08/29/20 16:58 09/04/20 21:18 Celecoxib 100 Mg Capsule PO 100 mg BID PRN Administration Pain Clonidine HCl 0.1 mg 08/29/20 16:58 09/04/20 23:51 Clonidine Hcl 0.1 Mg Tablet PO 0.1 mg QID PRN Administration Anxiety Protocol Cyclobenzaprine HCl 5 mg 08/29/20 21:00 09/04/20 21:18 Cyclobenzaprine Hcl 5 Mg Tablet PO 5 mg TID PRN Administration Muscle Spasm Fluticasone Propionate 1 spray 08/29/20 16:58 Fluticasone Propionate Nasal 16 Gm [place] NOSTRIL-B DAILY PRN Allergy Symptoms Gabapentin 800 mg 08/29/20 21:00 09/06/20 09:02 Gabapentin 400 Mg Capsule PO 800 mg TID AZUL Administration Haloperidol 5 mg 09/04/20 21:00 09/06/20 09:03 Haloperidol 5 Mg Tablet PO 5 mg BID AZUL Administration Loratadine 10 mg 08/30/20 11:29 Loratadine 10 Mg Tablet PO DAILY PRN Allergic Symptoms Magnesium Hydroxide 30 ml 09/01/20 21:23 Milk Of Magnesia 30 Ml Oral.Susp PO DAILY PRN Constipation Multi-Ingred Cream/Lotion/Oil/Oint 1 appl 09/05/20 21:00 09/06/20 09:54 Mineral Oil/Petrolatum,White 106 Gm [place] TOPICAL 1 appl TID AZUL Administration Nicotine 21 mg 08/30/20 09:00 09/06/20 09:03 Nicotine 21 Mg Patch.Td24 TRANSDERMA 21 mg DAILY AZUL Administration Nicotine Polacrilex 2 mg 08/29/20 17:24 08/31/20 17:20 Nicotine Polacrilex 2 Mg Lozenge BUCCAL 2 mg Q2H PRN Administration Nicotine Cravings Ondansetron HCl 4 mg 08/29/20 16:58 Ondansetron Odt 4 Mg Tab.Rapdis TRANSLINGU DAILY PRN Nausea Oxcarbazepine 300 mg 08/29/20 21:00 09/06/20 09:02 Oxcarbazepine 300 Mg Tablet PO 300 mg BID AZUL Administration Oxybutynin Chloride 10 mg 08/30/20 09:00 09/06/20 09:02 Oxybutynin Chloride Er 5 Mg Tab.Er.24 PO 10 mg DAILY AZUL Administration Prazosin HCl 3 mg 08/29/20 21:00 09/05/20 20:38 Prazosin Hcl 1 Mg Capsule PO 3 mg BEDTIME AZUL Administration Protocol Trazodone HCl 100 mg 08/29/20 16:58 09/05/20 22:48 Trazodone Hcl 100 Mg Tablet PO 100 mg BEDTIME PRN Administration Sleep Allergies Allergies Allergy/AdvReac Type Severity Reaction Status Date / Time bee pollen [bee stings] Allergy Swelling Verified 08/29/20 16:30 shellfish derived Allergy Swelling Verified 08/29/20 16:30 ibuprofen [From Motrin] AdvReac Abdominal Verified 08/29/20 16:30 Pain iron AdvReac Abdominal Verified 08/29/20 16:30 Pain naloxone AdvReac Vomiting Verified 08/29/20 16:30 Assessment & Plan Assessment & Plan (1) Polysubstance dependence in early, early partial, sustained full, or sustained partial remission: Status: Acute Code(s): F19.21 - Other psychoactive substance dependence, in remission Assessment and Plan: seems aware of need for ongoing care for this (2) Borderline personality disorder: Status: Acute Code(s): F60.3 - Borderline personality disorder Assessment and Plan: labile interpersonal interactions- (3) Posttraumatic stress disorder: Status: Acute Code(s): F43.10 - Post-traumatic stress disorder, unspecified Assessment and Plan: can be reactive/triggered- Greater than 50% of the session was spent on counseling and/or coordination of care
[2020-09-06 16:02] VITALS: BP 153/87; PULSE 85
[2020-09-06] MEDS: cloNIDine HCL 0.1 MG TABLET PO (16:02)
[2020-09-06] MEDS: Celecoxib 100 MG CAPSULE PO (16:02)
[2020-09-06 18:00] VITALS: BP 153/87; PULSE 85; TEMP 36.1
[2020-09-06 20:18] VITALS: BP 153/87; PULSE 85
[2020-09-06] MEDS: Prazosin HCL 1 MG CAPSULE 3 MG PO (20:18)
[2020-09-06] MEDS: Amitriptyline HCl 25 MG TABLET PO (20:19)
[2020-09-06] MEDS: traZODone HCL 100 MG TABLET PO (22:35)
[2020-09-07 06:00] VITALS: BP 132/74; PULSE 80; TEMP 36.2
[2020-09-07] MEDS: OXcarbazepine 300 MG TABLET PO ×2 (08:28→20:57)
[2020-09-07] MEDS: Nicotine 21 MG PATCH.TD24 TRANSDERMA (08:28)
[2020-09-07] MEDS: Mineral Oil/Petrolatum,White 106 GM Tube 1 APPL TOPICAL ×3 (08:29→22:17)
[2020-09-07] MEDS: Gabapentin 400 MG CAPSULE 800 MG PO ×3 (08:29→20:57)
[2020-09-07] MEDS: HaloperidoL 5 MG TABLET PO ×2 (08:29→20:58)
[2020-09-07] MEDS: buPROPion HCL 100 MG TABLET 150 MG PO ×2 (08:47→13:17)
[2020-09-07] MEDS: Buprenorphine HCL 2 MG TAB.SUBL SUBLINGUAL (09:57)
--- NOTE | 2020-09-07 11:35 | HO.PSYCHPN ---
Subjective Subjective Date of Service: 09/07/20 Reason For Visit: crisis Subjective Notes: Conditional Voluntary Interim History: Pt agitated today over her calorie restriction- spent whole time discussing this denying issues with mood/si or substance cravings however is ordering 4 entrees/meal - Tried to discuss managing her health thru food- She insists she is exercising daily with roommate and is not used to such good food Medication Compliance: Yes Side effects from medications: No Attending Groups: Yes Review of Systems Acute medical concerns: No Medical Review of Systems: unchanged Mental Status Exam Mental Status Exam Patient Appearance: Well Grooomed Patient Orientation: Person, Place, Time and Situation Level of Consciousness: Awake Patient Behavior: Appropriate and Talkative Mood Description: Calm Affect Description: Labile Patient Cognition Impaired: No Ability to Follow Directions: Fair Speech Pattern: Clear Memory Description: Intact Hallucinations: None Thought Process: Intact Judgement: Fair Diagnostics Vital Signs (24Hr): Vital Signs - 24 hr 09/06/20 16:02 09/06/20 18:00 09/06/20 20:18 Temperature 97 F Pulse Rate 85 85 85 Blood Pressure 153/87 H 153/87 H 153/87 H 09/07/20 06:00 Temperature 97.2 F Pulse Rate 80 Blood Pressure 132/74 Body Mass Index 48.3 Labs Results: 08/29/20 16:05 08/29/20 16:05 Medications Medications Current Medications Generic Name Dose Route Start Last Admin Trade Name Freq PRN Reason Stop Dose Admin Al Hydroxide/Mg Hydroxide 30 ml 09/01/20 21:23 Magnesium Hydrox/Alum Hydrox 30 Ml Oral.Susp PO Q6H PRN Heartburn/Nausea Amitriptyline HCl 25 mg 08/29/20 21:00 09/06/20 20:19 Amitriptyline Hcl 25 Mg Tablet PO 25 mg BEDTIME AZUL Administration Buprenorphine HCl 2 mg 08/31/20 09:00 09/07/20 09:57 Buprenorphine Hcl 2 Mg Tab.Subl SUBLINGUAL 2 mg DAILY AZUL Administration Bupropion HCl 150 mg 09/03/20 09:22 09/07/20 08:47 Bupropion Hcl 100 Mg Tablet PO 150 mg BID@0830,1330 AZUL Administration Celecoxib 100 mg 08/29/20 16:58 09/06/20 16:02 Celecoxib 100 Mg Capsule PO 100 mg BID PRN Administration Pain Clonidine HCl 0.1 mg 08/29/20 16:58 09/06/20 16:02 Clonidine Hcl 0.1 Mg Tablet PO 0.1 mg QID PRN Administration Anxiety Protocol Cyclobenzaprine HCl 5 mg 08/29/20 21:00 09/04/20 21:18 Cyclobenzaprine Hcl 5 Mg Tablet PO 5 mg TID PRN Administration Muscle Spasm Fluticasone Propionate 1 spray 08/29/20 16:58 Fluticasone Propionate Nasal 16 Gm [place] NOSTRIL-B DAILY PRN Allergy Symptoms Gabapentin 800 mg 08/29/20 21:00 09/07/20 08:29 Gabapentin 400 Mg Capsule PO 800 mg TID AZUL Administration Haloperidol 5 mg 09/04/20 21:00 09/07/20 08:29 Haloperidol 5 Mg Tablet PO 5 mg BID AZUL Administration Loratadine 10 mg 08/30/20 11:29 Loratadine 10 Mg Tablet PO DAILY PRN Allergic Symptoms Magnesium Hydroxide 30 ml 09/01/20 21:23 Milk Of Magnesia 30 Ml Oral.Susp PO DAILY PRN Constipation Multi-Ingred Cream/Lotion/Oil/Oint 1 appl 09/05/20 21:00 09/07/20 08:29 Mineral Oil/Petrolatum,White 106 Gm Tube TOPICAL 1 appl TID AZUL Administration Nicotine 21 mg 08/30/20 09:00 09/07/20 08:28 Nicotine 21 Mg Patch.Td24 TRANSDERMA 21 mg DAILY AZUL Administration Nicotine Polacrilex 2 mg 08/29/20 17:24 08/31/20 17:20 Nicotine Polacrilex 2 Mg Lozenge BUCCAL 2 mg Q2H PRN Administration Nicotine Cravings Ondansetron HCl 4 mg 08/29/20 16:58 Ondansetron Odt 4 Mg Tab.Rapdis TRANSLINGU DAILY PRN Nausea Oxcarbazepine 300 mg 08/29/20 21:00 09/07/20 08:28 Oxcarbazepine 300 Mg Tablet PO 300 mg BID AZUL Administration Oxybutynin Chloride 10 mg 08/30/20 09:00 09/07/20 08:29 Oxybutynin Chloride Er 5 Mg Tab.Er.24 PO 10 mg DAILY AZUL Administration Prazosin HCl 3 mg 08/29/20 21:00 09/06/20 20:18 Prazosin Hcl 1 Mg Capsule PO 3 mg BEDTIME AZUL Administration Protocol Trazodone HCl 100 mg 08/29/20 16:58 09/06/20 22:35 Trazodone Hcl 100 Mg Tablet PO 100 mg BEDTIME PRN Administration Sleep Allergies Allergies Allergy/AdvReac Type Severity Reaction Status Date / Time bee pollen [bee stings] Allergy Swelling Verified 08/29/20 16:30 shellfish derived Allergy Swelling Verified 08/29/20 16:30 ibuprofen [From Motrin] AdvReac Abdominal Verified 08/29/20 16:30 Pain iron AdvReac Abdominal Verified 08/29/20 16:30 Pain naloxone AdvReac Vomiting Verified 08/29/20 16:30 Assessment & Plan Assessment & Plan (1) Polysubstance dependence in early, early partial, sustained full, or sustained partial remission: Status: Acute Code(s): F19.21 - Other psychoactive substance dependence, in remission Assessment and Plan: maybe substituting food for other substances - (2) Posttraumatic stress disorder: Status: Acute Code(s): F43.10 - Post-traumatic stress disorder, unspecified Assessment and Plan: feels she isdoing ok on medications/mood- Greater than 50% of the session was spent on counseling and/or coordination of care
[2020-09-07 18:00] VITALS: BP 141/71; PULSE 79; TEMP 36.4
[2020-09-07 20:56] VITALS: BP 144/71; PULSE 79
[2020-09-07] MEDS: Prazosin HCL 1 MG CAPSULE 3 MG PO (20:56)
[2020-09-07] MEDS: Amitriptyline HCl 25 MG TABLET PO (20:57)
[2020-09-07] MEDS: traZODone HCL 100 MG TABLET PO (22:56)
[2020-09-08 06:30] VITALS: RESP 18
--- NOTE | 2020-09-08 06:50 | HO.PSYCHPN ---
Subjective Subjective Date of Service: 09/08/20 Reason For Visit: crisis Interim History: Pleasant. Reports anxiety. Overall hopeful. Awaiting CSS. Chronic PTSD Review of Systems Review of Systems Constitutional: No Weight loss, No Fever, No Chills, No Night Sweats, No Fatigue, No Malaise ENT/Mouth: No Hearing loss, No Ear Pain, No Nasal Congestion, No Sinus Pain, No Hoarseness, No sore throat, No Rhinorrhea, No Swallowing Difficulty Eyes: No Eye Pain, No Swelling, No Redness, No Foreign Body, No Discharge, No Vision Changes Cardiovascular: No Chest Pain, No SOB, No Dyspnea on Exertion, No Orthopnea, No Edema, No Palpitations Respiratory: No Cough, No Sputum, No Wheezing, No Smoke Exposure, No Dyspnea Gastrointestinal: No Nausea, No Vomiting, No Diarrhea, No Constipation, No abdominal Pain, No Hematochezia, No Melena Genitourinary: no irregular bleeding, No Dysuria, No Urinary Frequency, No Hematuria, No Urinary Incontinence, No Urgency, No Flank Pain, No Urinary Flow Changes, No Hesitancy Musculoskeletal: No joint pain, No Myalgias, No Joint Swelling Skin: No Skin Lesions, No rash Neuro: No Weakness, No Numbness, No Paresthesias, No Loss of Consciousness, No Dizziness, No Headache Psych: No Anxiety/Panic, No Depression, No SI/HI/AH/VH, No Social Issues, Heme/Lymph: No Bruising, No Bleeding,No Lymphadenopathy Endocrine: No Polyuria, No Polydipsia, No Temperature Intolerance Mental Status Exam Mental Status Exam Patient Appearance: Well Grooomed Patient Orientation: Person, Place, Time and Situation Level of Consciousness: Awake Patient Behavior: Appropriate and Talkative Mood Description: Calm Affect Description: Labile Patient Cognition Impaired: No Ability to Follow Directions: Fair Speech Pattern: Clear Memory Description: Intact Diagnostics Vital Signs (24Hr): Vital Signs - 24 hr 09/07/20 18:00 09/07/20 20:56 Temperature 97.5 F Pulse Rate 79 79 Blood Pressure 141/71 H 144/71 H Body Mass Index 48.3 Labs Results: 08/29/20 16:05 08/29/20 16:05 Medications Medications Current Medications Generic Name Dose Route Start Last Admin Trade Name Freq PRN Reason Stop Dose Admin Al Hydroxide/Mg Hydroxide 30 ml 09/01/20 21:23 Magnesium Hydrox/Alum Hydrox 30 Ml Oral.Susp PO Q6H PRN Heartburn/Nausea Amitriptyline HCl 25 mg 08/29/20 21:00 09/07/20 20:57 Amitriptyline Hcl 25 Mg Tablet PO 25 mg BEDTIME AZUL Administration Buprenorphine HCl 2 mg 08/31/20 09:00 09/07/20 09:57 Buprenorphine Hcl 2 Mg Tab.Subl SUBLINGUAL 2 mg DAILY AZUL Administration Bupropion HCl 150 mg 09/03/20 09:22 09/07/20 13:17 Bupropion Hcl 100 Mg Tablet PO 150 mg BID@0830,1330 AZUL Administration Celecoxib 100 mg 08/29/20 16:58 09/06/20 16:02 Celecoxib 100 Mg Capsule PO 100 mg BID PRN Administration Pain Clonidine HCl 0.1 mg 08/29/20 16:58 09/06/20 16:02 Clonidine Hcl 0.1 Mg Tablet PO 0.1 mg QID PRN Administration Anxiety Protocol Cyclobenzaprine HCl 5 mg 08/29/20 21:00 09/04/20 21:18 Cyclobenzaprine Hcl 5 Mg Tablet PO 5 mg TID PRN Administration Muscle Spasm Fluticasone Propionate 1 spray 08/29/20 16:58 Fluticasone Propionate Nasal 16 Gm [place] NOSTRIL-B DAILY PRN Allergy Symptoms Gabapentin 800 mg 08/29/20 21:00 09/07/20 20:57 Gabapentin 400 Mg Capsule PO 800 mg TID AZUL Administration Haloperidol 5 mg 09/04/20 21:00 09/07/20 20:58 Haloperidol 5 Mg Tablet PO 5 mg BID AZUL Administration Loratadine 10 mg 08/30/20 11:29 Loratadine 10 Mg Tablet PO DAILY PRN Allergic Symptoms Magnesium Hydroxide 30 ml 09/01/20 21:23 Milk Of Magnesia 30 Ml Oral.Susp PO DAILY PRN Constipation Multi-Ingred Cream/Lotion/Oil/Oint 1 appl 09/05/20 21:00 09/07/20 22:17 Mineral Oil/Petrolatum,White 106 Gm Tube TOPICAL 1 appl TID AZUL Administration Nicotine 21 mg 08/30/20 09:00 09/07/20 08:28 Nicotine 21 Mg Patch.Td24 TRANSDERMA 21 mg DAILY AZUL Administration Nicotine Polacrilex 2 mg 08/29/20 17:24 08/31/20 17:20 Nicotine Polacrilex 2 Mg Lozenge BUCCAL 2 mg Q2H PRN Administration Nicotine Cravings Ondansetron HCl 4 mg 08/29/20 16:58 Ondansetron Odt 4 Mg Tab.Rapdis TRANSLINGU DAILY PRN Nausea Oxcarbazepine 300 mg 08/29/20 21:00 09/07/20 20:57 Oxcarbazepine 300 Mg Tablet PO 300 mg BID AZUL Administration Oxybutynin Chloride 10 mg 08/30/20 09:00 09/07/20 08:29 Oxybutynin Chloride Er 5 Mg Tab.Er.24 PO 10 mg DAILY AZUL Administration Prazosin HCl 3 mg 08/29/20 21:00 09/07/20 20:56 Prazosin Hcl 1 Mg Capsule PO 3 mg BEDTIME AZUL Administration Protocol Trazodone HCl 100 mg 08/29/20 16:58 09/07/20 22:56 Trazodone Hcl 100 Mg Tablet PO 100 mg BEDTIME PRN Administration Sleep Allergies Allergies Allergy/AdvReac Type Severity Reaction Status Date / Time bee pollen [bee stings] Allergy Swelling Verified 08/29/20 16:30 shellfish derived Allergy Swelling Verified 08/29/20 16:30 ibuprofen [From Motrin] AdvReac Abdominal Verified 08/29/20 16:30 Pain iron AdvReac Abdominal Verified 08/29/20 16:30 Pain naloxone AdvReac Vomiting Verified 08/29/20 16:30 Assessment & Plan Assessment & Plan (1) Polysubstance dependence in early, early partial, sustained full, or sustained partial remission: Status: Acute Code(s): F19.21 - Other psychoactive substance dependence, in remission (2) Posttraumatic stress disorder: Status: Acute Code(s): F43.10 - Post-traumatic stress disorder, unspecified Assessment and Plan: feels she isdoing ok on medications/mood- Greater than 50% of the session was spent on counseling and/or coordination of care
[2020-09-08] MEDS: buPROPion HCL 100 MG TABLET 150 MG PO ×2 (09:07→13:43)
[2020-09-08] MEDS: Gabapentin 400 MG CAPSULE 800 MG PO ×3 (09:09→19:52)
[2020-09-08] MEDS: HaloperidoL 5 MG TABLET PO ×2 (09:09→22:05)
[2020-09-08] MEDS: OXcarbazepine 300 MG TABLET PO ×2 (09:10→22:05)
[2020-09-08] MEDS: Buprenorphine HCL 2 MG TAB.SUBL SUBLINGUAL (09:11)
[2020-09-08] MEDS: Nicotine 21 MG PATCH.TD24 TRANSDERMA (09:11)
[2020-09-08] MEDS: Mineral Oil/Petrolatum,White 106 GM Tube 1 APPL TOPICAL (11:09)
[2020-09-08 11:44] VITALS: BP 116/57; PULSE 79
[2020-09-08] MEDS: cloNIDine HCL 0.1 MG TABLET PO ×2 (11:44→22:06)
[2020-09-08] MEDS: Celecoxib 100 MG CAPSULE PO ×2 (11:44→22:06)
[2020-09-08] MEDS: Cyclobenzaprine HCl 5 MG TABLET PO ×2 (11:45→22:06)
[2020-09-08 18:00] VITALS: BP 139/77; PULSE 79; TEMP 36.2
[2020-09-08 22:04] VITALS: BP 130/70; PULSE 78
[2020-09-08] MEDS: Prazosin HCL 1 MG CAPSULE 3 MG PO (22:04)
[2020-09-08 22:06] VITALS: BP 130/70; PULSE 78
[2020-09-08] MEDS: Amitriptyline HCl 25 MG TABLET PO (22:06)
[2020-09-08] MEDS: traZODone HCL 100 MG TABLET PO (22:37)
[2020-09-09 06:20] VITALS: BP 108/58; PULSE 77; RESP 18; TEMP 36.1
[2020-09-09] MEDS: Mineral Oil/Petrolatum,White 106 GM Tube 1 APPL TOPICAL (08:48)
[2020-09-09] MEDS: buPROPion HCL 100 MG TABLET 150 MG PO ×2 (08:49→13:49)
[2020-09-09] MEDS: Nicotine 21 MG PATCH.TD24 TRANSDERMA (08:49)
[2020-09-09] MEDS: Gabapentin 400 MG CAPSULE 800 MG PO ×3 (08:49→19:59)
[2020-09-09] MEDS: HaloperidoL 5 MG TABLET PO ×2 (08:50→19:59)
[2020-09-09] MEDS: OXcarbazepine 300 MG TABLET PO ×2 (08:50→19:59)
--- NOTE | 2020-09-09 09:20 | P.PNPSI_ITS ---
Subjective Subjective Date of Service: 09/10/20 Reason For Visit: crisis Interim History: Pleasant. Reports anxiety. Overall hopeful. Awaiting CSS. Chronic PTSD. Can be disruptive and demanding at times. Discussed ? DC Fri Review of Systems Review of Systems Constitutional: No Weight loss, No Fever, No Chills, No Night Sweats, No Fatigue, No Malaise ENT/Mouth: No Hearing loss, No Ear Pain, No Nasal Congestion, No Sinus Pain, No Hoarseness, No sore throat, No Rhinorrhea, No Swallowing Difficulty Eyes: No Eye Pain, No Swelling, No Redness, No Foreign Body, No Discharge, No Vision Changes Cardiovascular: No Chest Pain, No SOB, No Dyspnea on Exertion, No Orthopnea, No Edema, No Palpitations Respiratory: No Cough, No Sputum, No Wheezing, No Smoke Exposure, No Dyspnea Gastrointestinal: No Nausea, No Vomiting, No Diarrhea, No Constipation, No abdominal Pain, No Hematochezia, No Melena Genitourinary: no irregular bleeding, No Dysuria, No Urinary Frequency, No Hematuria, No Urinary Incontinence, No Urgency, No Flank Pain, No Urinary Flow Changes, No Hesitancy Musculoskeletal: No joint pain, No Myalgias, No Joint Swelling Skin: No Skin Lesions, No rash Neuro: No Weakness, No Numbness, No Paresthesias, No Loss of Consciousness, No Dizziness, No Headache Psych: No Anxiety/Panic, No Depression, No SI/HI/AH/VH, No Social Issues, Heme/Lymph: No Bruising, No Bleeding,No Lymphadenopathy Endocrine: No Polyuria, No Polydipsia, No Temperature Intolerance Mental Status Exam Mental Status Exam Patient Appearance: Well Grooomed Patient Orientation: Person, Place, Time and Situation Level of Consciousness: Awake Patient Behavior: Appropriate and Talkative Mood Description: Calm Affect Description: Labile Patient Cognition Impaired: No Ability to Follow Directions: Fair Speech Pattern: Clear Memory Description: Intact Diagnostics Vital Signs (24Hr): Vital Signs - 24 hr 09/08/20 11:44 09/08/20 18:00 09/08/20 22:04 Temperature 97.2 F Pulse Rate 79 79 78 Respiratory Rate Blood Pressure 116/57 L 139/77 130/70 09/08/20 22:06 09/09/20 06:20 Temperature 96.9 F Pulse Rate 78 77 Respiratory Rate 18 Blood Pressure 130/70 108/58 L Body Mass Index 48.3 Labs Results: 08/29/20 16:05 08/29/20 16:05 Medications Medications Current Medications Generic Name Dose Route Start Last Admin Trade Name Freq PRN Reason Stop Dose Admin Al Hydroxide/Mg Hydroxide 30 ml 09/01/20 21:23 Magnesium Hydrox/Alum Hydrox 30 Ml Oral.Susp PO Q6H PRN Heartburn/Nausea Amitriptyline HCl 25 mg 08/29/20 21:00 09/08/20 22:06 Amitriptyline Hcl 25 Mg Tablet PO 25 mg BEDTIME AZUL Administration Buprenorphine HCl 2 mg 08/31/20 09:00 09/08/20 09:11 Buprenorphine Hcl 2 Mg Tab.Subl SUBLINGUAL 2 mg DAILY AZUL Administration Bupropion HCl 150 mg 09/03/20 09:22 09/09/20 08:49 Bupropion Hcl 100 Mg Tablet PO 150 mg BID@0830,1330 AZUL Administration Celecoxib 100 mg 08/29/20 16:58 09/08/20 22:06 Celecoxib 100 Mg Capsule PO 100 mg BID PRN Administration Pain Clonidine HCl 0.1 mg 08/29/20 16:58 09/08/20 22:06 Clonidine Hcl 0.1 Mg Tablet PO 0.1 mg QID PRN Administration Anxiety Protocol Cyclobenzaprine HCl 5 mg 08/29/20 21:00 09/08/20 22:06 Cyclobenzaprine Hcl 5 Mg Tablet PO 5 mg TID PRN Administration Muscle Spasm Fluticasone Propionate 1 spray 08/29/20 16:58 Fluticasone Propionate Nasal 16 Gm [place] NOSTRIL-B DAILY PRN Allergy Symptoms Gabapentin 800 mg 08/29/20 21:00 09/09/20 08:49 Gabapentin 400 Mg Capsule PO 800 mg TID AZUL Administration Haloperidol 5 mg 09/04/20 21:00 09/09/20 08:50 Haloperidol 5 Mg Tablet PO 5 mg BID AZUL Administration Loratadine 10 mg 08/30/20 11:29 Loratadine 10 Mg Tablet PO DAILY PRN Allergic Symptoms Magnesium Hydroxide 30 ml 09/01/20 21:23 Milk Of Magnesia 30 Ml Oral.Susp PO DAILY PRN Constipation Multi-Ingred Cream/Lotion/Oil/Oint 1 appl 09/05/20 21:00 09/09/20 08:48 Mineral Oil/Petrolatum,White 106 Gm Tube TOPICAL 1 appl TID AZUL Administration Nicotine 21 mg 08/30/20 09:00 09/09/20 08:49 Nicotine 21 Mg Patch.Td24 TRANSDERMA 21 mg DAILY AZUL Administration Nicotine Polacrilex 2 mg 08/29/20 17:24 09/08/20 22:07 Nicotine Polacrilex 2 Mg Lozenge BUCCAL 2 mg Q2H PRN Administration Nicotine Cravings Ondansetron HCl 4 mg 08/29/20 16:58 Ondansetron Odt 4 Mg Tab.Rapdis TRANSLINGU DAILY PRN Nausea Oxcarbazepine 300 mg 08/29/20 21:00 09/09/20 08:50 Oxcarbazepine 300 Mg Tablet PO 300 mg BID AZUL Administration Oxybutynin Chloride 10 mg 08/30/20 09:00 09/09/20 08:49 Oxybutynin Chloride Er 5 Mg Tab.Er.24 PO 10 mg DAILY AZUL Administration Prazosin HCl 3 mg 08/29/20 21:00 09/08/20 22:04 Prazosin Hcl 1 Mg Capsule PO 3 mg BEDTIME AZUL Administration Protocol Trazodone HCl 100 mg 08/29/20 16:58 09/08/20 22:37 Trazodone Hcl 100 Mg Tablet PO 100 mg BEDTIME PRN Administration Sleep Allergies Allergies Allergy/AdvReac Type Severity Reaction Status Date / Time bee pollen [bee stings] Allergy Swelling Verified 08/29/20 16:30 shellfish derived Allergy Swelling Verified 08/29/20 16:30 ibuprofen [From Motrin] AdvReac Abdominal Verified 08/29/20 16:30 Pain iron AdvReac Abdominal Verified 08/29/20 16:30 Pain naloxone AdvReac Vomiting Verified 08/29/20 16:30 Assessment & Plan Assessment & Plan (1) Polysubstance dependence in early, early partial, sustained full, or sustained partial remission: Status: Acute Code(s): F19.21 - Other psychoactive substance dependence, in remission (2) Posttraumatic stress disorder: Status: Acute Code(s): F43.10 - Post-traumatic stress disorder, unspecified Assessment and Plan: feels she isdoing ok on medications/mood-. Ct meds Greater than 50% of the session was spent on counseling and/or coordination of care
[2020-09-09] MEDS: Buprenorphine HCL 2 MG TAB.SUBL SUBLINGUAL (11:56)
[2020-09-09 16:26] VITALS: BP 109/56; PULSE 68
[2020-09-09] MEDS: Cyclobenzaprine HCl 5 MG TABLET PO (16:26)
[2020-09-09] MEDS: Celecoxib 100 MG CAPSULE PO (16:26)
[2020-09-09] MEDS: cloNIDine HCL 0.1 MG TABLET PO (16:26)
[2020-09-09 18:00] VITALS: BP 133/70; PULSE 77; TEMP 36.7
[2020-09-09 19:59] VITALS: BP 133/70; PULSE 77
[2020-09-09] MEDS: Prazosin HCL 1 MG CAPSULE 3 MG PO (19:59)
[2020-09-09] MEDS: Amitriptyline HCl 25 MG TABLET PO (19:59)
[2020-09-09] MEDS: traZODone HCL 100 MG TABLET PO (21:28)
[2020-09-10 06:00] VITALS: BP 146/71; PULSE 82; TEMP 36.4
[2020-09-10] MEDS: Mineral Oil/Petrolatum,White 106 GM Tube 1 APPL TOPICAL ×2 (10:05→14:06)
[2020-09-10] MEDS: Buprenorphine HCL 2 MG TAB.SUBL SUBLINGUAL (10:06)
[2020-09-10] MEDS: Gabapentin 400 MG CAPSULE 800 MG PO ×3 (10:07→19:56)
[2020-09-10] MEDS: buPROPion HCL 100 MG TABLET 150 MG PO ×2 (10:07→14:04)
[2020-09-10] MEDS: Nicotine 21 MG PATCH.TD24 TRANSDERMA (10:09)
[2020-09-10] MEDS: HaloperidoL 5 MG TABLET PO ×2 (10:09→19:56)
[2020-09-10] MEDS: OXcarbazepine 300 MG TABLET PO ×2 (10:12→19:56)
[2020-09-10 18:00] VITALS: BP 171/79; PULSE 99; TEMP 36.8
--- NOTE | 2020-09-10 18:44 | P.PNPSI_ITS ---
Subjective Subjective Date of Service: 09/10/20 Reason For Visit: crisis Interim History: Pleasant. Reports anxiety. Overall hopeful. Awaiting CSS. Chronic PTSD. Can be disruptive and demanding at times. Discussed ? DC Fri Review of Systems Review of Systems Constitutional: No Weight loss, No Fever, No Chills, No Night Sweats, No Fatigue, No Malaise ENT/Mouth: No Hearing loss, No Ear Pain, No Nasal Congestion, No Sinus Pain, No Hoarseness, No sore throat, No Rhinorrhea, No Swallowing Difficulty Eyes: No Eye Pain, No Swelling, No Redness, No Foreign Body, No Discharge, No Vision Changes Cardiovascular: No Chest Pain, No SOB, No Dyspnea on Exertion, No Orthopnea, No Edema, No Palpitations Respiratory: No Cough, No Sputum, No Wheezing, No Smoke Exposure, No Dyspnea Gastrointestinal: No Nausea, No Vomiting, No Diarrhea, No Constipation, No abdominal Pain, No Hematochezia, No Melena Genitourinary: no irregular bleeding, No Dysuria, No Urinary Frequency, No Hematuria, No Urinary Incontinence, No Urgency, No Flank Pain, No Urinary Flow Changes, No Hesitancy Musculoskeletal: No joint pain, No Myalgias, No Joint Swelling Skin: No Skin Lesions, No rash Neuro: No Weakness, No Numbness, No Paresthesias, No Loss of Consciousness, No Dizziness, No Headache Psych: No Anxiety/Panic, No Depression, No SI/HI/AH/VH, No Social Issues, Heme/Lymph: No Bruising, No Bleeding,No Lymphadenopathy Endocrine: No Polyuria, No Polydipsia, No Temperature Intolerance Mental Status Exam Mental Status Exam Patient Appearance: Well Grooomed Patient Orientation: Person, Place, Time and Situation Level of Consciousness: Awake Patient Behavior: Appropriate and Talkative Mood Description: Calm Affect Description: Labile Patient Cognition Impaired: No Ability to Follow Directions: Fair Speech Pattern: Clear Memory Description: Intact Diagnostics Vital Signs (24Hr): Vital Signs - 24 hr 09/09/20 19:59 09/10/20 06:00 Temperature 97.6 F Pulse Rate 77 82 Blood Pressure 133/70 146/71 H Body Mass Index 48.3 Labs Results: 08/29/20 16:05 08/29/20 16:05 Medications Medications Current Medications Generic Name Dose Route Start Last Admin Trade Name Freq PRN Reason Stop Dose Admin Al Hydroxide/Mg Hydroxide 30 ml 09/01/20 21:23 Magnesium Hydrox/Alum Hydrox 30 Ml Oral.Susp PO Q6H PRN Heartburn/Nausea Amitriptyline HCl 25 mg 08/29/20 21:00 09/09/20 19:59 Amitriptyline Hcl 25 Mg Tablet PO 25 mg BEDTIME AZUL Administration Buprenorphine HCl 2 mg 08/31/20 09:00 09/10/20 10:06 Buprenorphine Hcl 2 Mg Tab.Subl SUBLINGUAL 2 mg DAILY AZUL Administration Bupropion HCl 150 mg 09/03/20 09:22 09/10/20 14:04 Bupropion Hcl 100 Mg Tablet PO 150 mg BID@0830,1330 AZUL Administration Celecoxib 100 mg 08/29/20 16:58 09/09/20 16:26 Celecoxib 100 Mg Capsule PO 100 mg BID PRN Administration Pain Clonidine HCl 0.1 mg 08/29/20 16:58 09/09/20 16:26 Clonidine Hcl 0.1 Mg Tablet PO 0.1 mg QID PRN Administration Anxiety Protocol Cyclobenzaprine HCl 5 mg 08/29/20 21:00 09/09/20 16:26 Cyclobenzaprine Hcl 5 Mg Tablet PO 5 mg TID PRN Administration Muscle Spasm Fluticasone Propionate 1 spray 08/29/20 16:58 Fluticasone Propionate Nasal 16 Gm [place] NOSTRIL-B DAILY PRN Allergy Symptoms Gabapentin 800 mg 08/29/20 21:00 09/10/20 14:06 Gabapentin 400 Mg Capsule PO 800 mg TID AZUL Administration Haloperidol 5 mg 09/04/20 21:00 09/10/20 10:09 Haloperidol 5 Mg Tablet PO 5 mg BID AZUL Administration Loratadine 10 mg 08/30/20 11:29 Loratadine 10 Mg Tablet PO DAILY PRN Allergic Symptoms Magnesium Hydroxide 30 ml 09/01/20 21:23 Milk Of Magnesia 30 Ml Oral.Susp PO DAILY PRN Constipation Multi-Ingred Cream/Lotion/Oil/Oint 1 appl 09/05/20 21:00 09/10/20 14:06 Mineral Oil/Petrolatum,White 106 Gm Tube TOPICAL 1 appl TID AZUL Administration Nicotine 21 mg 08/30/20 09:00 09/10/20 10:09 Nicotine 21 Mg Patch.Td24 TRANSDERMA 21 mg DAILY AZUL Administration Nicotine Polacrilex 2 mg 08/29/20 17:24 09/09/20 16:26 Nicotine Polacrilex 2 Mg Lozenge BUCCAL 2 mg Q2H PRN Administration Nicotine Cravings Ondansetron HCl 4 mg 08/29/20 16:58 Ondansetron Odt 4 Mg Tab.Rapdis TRANSLINGU DAILY PRN Nausea Oxcarbazepine 300 mg 08/29/20 21:00 09/10/20 10:12 Oxcarbazepine 300 Mg Tablet PO 300 mg BID AZUL Administration Oxybutynin Chloride 10 mg 08/30/20 09:00 09/10/20 10:06 Oxybutynin Chloride Er 5 Mg Tab.Er.24 PO 10 mg DAILY AZUL Administration Prazosin HCl 3 mg 08/29/20 21:00 09/09/20 19:59 Prazosin Hcl 1 Mg Capsule PO 3 mg BEDTIME AZUL Administration Protocol Trazodone HCl 100 mg 08/29/20 16:58 09/09/20 21:28 Trazodone Hcl 100 Mg Tablet PO 100 mg BEDTIME PRN Administration Sleep Allergies Allergies Allergy/AdvReac Type Severity Reaction Status Date / Time bee pollen [bee stings] Allergy Swelling Verified 08/29/20 16:30 shellfish derived Allergy Swelling Verified 08/29/20 16:30 ibuprofen [From Motrin] AdvReac Abdominal Verified 08/29/20 16:30 Pain iron AdvReac Abdominal Verified 08/29/20 16:30 Pain naloxone AdvReac Vomiting Verified 08/29/20 16:30 Assessment & Plan Assessment & Plan (1) Polysubstance dependence in early, early partial, sustained full, or sustained partial remission: Status: Acute Code(s): F19.21 - Other psychoactive substance dependence, in remission (2) Posttraumatic stress disorder: Status: Acute Code(s): F43.10 - Post-traumatic stress disorder, unspecified Assessment and Plan: feels she isdoing ok on medications/mood-. Ct meds Greater than 50% of the session was spent on counseling and/or coordination of care
[2020-09-10] MEDS: Celecoxib 100 MG CAPSULE PO (18:53)
[2020-09-10] MEDS: Cyclobenzaprine HCl 5 MG TABLET PO (18:53)
[2020-09-10 19:55] VITALS: BP 171/79; PULSE 99
[2020-09-10] MEDS: Prazosin HCL 1 MG CAPSULE 3 MG PO (19:55)
[2020-09-10] MEDS: Amitriptyline HCl 25 MG TABLET PO (19:57)
[2020-09-10] MEDS: traZODone HCL 100 MG TABLET PO (22:49)
--- NOTE | 2020-09-11 07:47 | P.PNPSI_ITS ---
Subjective Subjective Date of Service: 09/11/20 Reason For Visit: crisis Interim History: Pleasant. Reports anxiety. Overall hopeful. Awaiting CSS. Chronic PTSD. Can be disruptive and demanding at times. Talked about her demons and how they visit her and talk to her. Discussed DC FMon Review of Systems Review of Systems Constitutional: No Weight loss, No Fever, No Chills, No Night Sweats, No Fatigue, No Malaise ENT/Mouth: No Hearing loss, No Ear Pain, No Nasal Congestion, No Sinus Pain, No Hoarseness, No sore throat, No Rhinorrhea, No Swallowing Difficulty Eyes: No Eye Pain, No Swelling, No Redness, No Foreign Body, No Discharge, No Vision Changes Cardiovascular: No Chest Pain, No SOB, No Dyspnea on Exertion, No Orthopnea, No Edema, No Palpitations Respiratory: No Cough, No Sputum, No Wheezing, No Smoke Exposure, No Dyspnea Gastrointestinal: No Nausea, No Vomiting, No Diarrhea, No Constipation, No abd ominal Pain, No Hematochezia, No Melena Genitourinary: no irregular bleeding, No Dysuria, No Urinary Frequency, No Hematuria, No Urinary Incontinence, No Urgency, No Flank Pain, No Urinary Flow Changes, No Hesitancy Musculoskeletal: No joint pain, No Myalgias, No Joint Swelling Skin: No Skin Lesions, No rash Neuro: No Weakness, No Numbness, No Paresthesias, No Loss of Consciousness, No Dizziness, No Headache Psych: No Anxiety/Panic, No Depression, No SI/HI/AH/VH, No Social Issues, Heme/Lymph: No Bruising, No Bleeding,No Lymphadenopathy Endocrine: No Polyuria, No Polydipsia, No Temperature Intolerance Mental Status Exam Mental Status Exam Patient Appearance: Well Grooomed Patient Orientation: Person, Place, Time and Situation Level of Consciousness: Awake Patient Behavior: Appropriate and Talkative Mood Description: Calm Affect Description: Labile Patient Cognition Impaired: No Ability to Follow Directions: Fair Speech Pattern: Clear Memory Description: Intact Diagnostics Vital Signs (24Hr): Vital Signs - 24 hr 09/10/20 18:00 09/10/20 19:55 Temperature 98.2 F Pulse Rate 99 99 Blood Pressure 171/79 H 171/79 H Body Mass Index 48.3 Labs Results: 08/29/20 16:05 08/29/20 16:05 Medications Medications Current Medications Generic Name Dose Route Start Last Admin Trade Name Freq PRN Reason Stop Dose Admin Al Hydroxide/Mg Hydroxide 30 ml 09/01/20 21:23 Magnesium Hydrox/Alum Hydrox 30 Ml Oral.Susp PO Q6H PRN Heartburn/Nausea Amitriptyline HCl 25 mg 08/29/20 21:00 09/10/20 19:57 Amitriptyline Hcl 25 Mg Tablet PO 25 mg BEDTIME AZUL Administration Buprenorphine HCl 2 mg 08/31/20 09:00 09/10/20 10:06 Buprenorphine Hcl 2 Mg Tab.Subl SUBLINGUAL 2 mg DAILY AZUL Administration Bupropion HCl 150 mg 09/03/20 09:22 09/10/20 14:04 Bupropion Hcl 100 Mg Tablet PO 150 mg BID@0830,1330 AZUL Administration Celecoxib 100 mg 08/29/20 16:58 09/10/20 18:53 Celecoxib 100 Mg Capsule PO 100 mg BID PRN Administration Pain Clonidine HCl 0.1 mg 08/29/20 16:58 09/09/20 16:26 Clonidine Hcl 0.1 Mg Tablet PO 0.1 mg QID PRN Administration Anxiety Protocol Cyclobenzaprine HCl 5 mg 08/29/20 21:00 09/10/20 18:53 Cyclobenzaprine Hcl 5 Mg Tablet PO 5 mg TID PRN Administration Muscle Spasm Fluticasone Propionate 1 spray 08/29/20 16:58 Fluticasone Propionate Nasal 16 Gm [place] NOSTRIL-B DAILY PRN Allergy Symptoms Gabapentin 800 mg 08/29/20 21:00 09/10/20 19:56 Gabapentin 400 Mg Capsule PO 800 mg TID AZUL Administration Haloperidol 5 mg 09/04/20 21:00 09/10/20 19:56 Haloperidol 5 Mg Tablet PO 5 mg BID AZUL Administration Loratadine 10 mg 08/30/20 11:29 Loratadine 10 Mg Tablet PO DAILY PRN Allergic Symptoms Magnesium Hydroxide 30 ml 09/01/20 21:23 Milk Of Magnesia 30 Ml Oral.Susp PO DAILY PRN Constipation Multi-Ingred Cream/Lotion/Oil/Oint 1 appl 09/05/20 21:00 09/10/20 21:01 Mineral Oil/Petrolatum,White 106 Gm Tube TOPICAL Not Given TID AZUL Nicotine 21 mg 08/30/20 09:00 09/10/20 10:09 Nicotine 21 Mg Patch.Td24 TRANSDERMA 21 mg DAILY AZUL Administration Nicotine Polacrilex 2 mg 08/29/20 17:24 09/09/20 16:26 Nicotine Polacrilex 2 Mg Lozenge BUCCAL 2 mg Q2H PRN Administration Nicotine Cravings Ondansetron HCl 4 mg 08/29/20 16:58 Ondansetron Odt 4 Mg Tab.Rapdis TRANSLINGU DAILY PRN Nausea Oxcarbazepine 300 mg 08/29/20 21:00 09/10/20 19:56 Oxcarbazepine 300 Mg Tablet PO 300 mg BID AZUL Administration Oxybutynin Chloride 10 mg 08/30/20 09:00 09/10/20 10:06 Oxybutynin Chloride Er 5 Mg Tab.Er.24 PO 10 mg DAILY AZUL Administration Prazosin HCl 3 mg 08/29/20 21:00 09/10/20 19:55 Prazosin Hcl 1 Mg Capsule PO 3 mg BEDTIME AZUL Administration Protocol Trazodone HCl 100 mg 08/29/20 16:58 09/10/20 22:49 Trazodone Hcl 100 Mg Tablet PO 100 mg BEDTIME PRN Administration Sleep Allergies Allergies Allergy/AdvReac Type Severity Reaction Status Date / Time bee pollen [bee stings] Allergy Swelling Verified 08/29/20 16:30 shellfish derived Allergy Swelling Verified 08/29/20 16:30 ibuprofen [From Motrin] AdvReac Abdominal Verified 08/29/20 16:30 Pain iron AdvReac Abdominal Verified 08/29/20 16:30 Pain naloxone AdvReac Vomiting Verified 08/29/20 16:30 Assessment & Plan Assessment & Plan (1) Polysubstance dependence in early, early partial, sustained full, or sustained partial remission: Status: Acute Code(s): F19.21 - Other psychoactive substance dependence, in remission (2) Posttraumatic stress disorder: Status: Acute Code(s): F43.10 - Post-traumatic stress disorder, unspecified Assessment and Plan: Ct Haldol Ct meds Greater than 50% of the session was spent on counseling and/or coordination of care
[2020-09-11] MEDS: buPROPion HCL 100 MG TABLET 150 MG PO ×2 (08:39→14:04)
[2020-09-11] MEDS: Gabapentin 400 MG CAPSULE 800 MG PO ×3 (08:39→20:02)
[2020-09-11] MEDS: Buprenorphine HCL 2 MG TAB.SUBL SUBLINGUAL (08:40)
[2020-09-11] MEDS: OXcarbazepine 300 MG TABLET PO ×2 (08:41→20:02)
[2020-09-11] MEDS: HaloperidoL 5 MG TABLET PO ×2 (08:41→20:02)
[2020-09-11] MEDS: Mineral Oil/Petrolatum,White 106 GM Tube 1 APPL TOPICAL ×2 (08:41→15:59)
[2020-09-11] MEDS: Nicotine 21 MG PATCH.TD24 TRANSDERMA (08:41)
[2020-09-11 18:00] VITALS: BP 166/93; PULSE 92; TEMP 35.8
[2020-09-11] MEDS: Celecoxib 100 MG CAPSULE PO (18:57)
[2020-09-11] MEDS: Cyclobenzaprine HCl 5 MG TABLET PO (18:57)
[2020-09-11] MEDS: Amitriptyline HCl 25 MG TABLET PO (20:01)
[2020-09-11 20:03] VITALS: BP 166/93; PULSE 92
[2020-09-11] MEDS: Prazosin HCL 1 MG CAPSULE 3 MG PO (20:03)
[2020-09-11 21:01] VITALS: BP 166/93; PULSE 92
[2020-09-11] MEDS: cloNIDine HCL 0.1 MG TABLET PO (21:01)
[2020-09-11] MEDS: traZODone HCL 100 MG TABLET PO (22:00)
[2020-09-12 06:20] VITALS: BP 135/65; PULSE 96; RESP 18; TEMP 35.9; O2SAT 95
--- NOTE | 2020-09-12 07:51 | P.PNPSI_ITS ---
Subjective Subjective Date of Service: 09/12/20 Reason For Visit: crisis Interim History: Pt reports ghosts and demons in room. Was disruptive and confrontational with peer. Limits set by and Director Macario. Pt contrite and willing to be in behavior control. DC Mon. Review of Systems Review of Systems Constitutional: No Weight loss, No Fever, No Chills, No Night Sweats, No Fatigue, No Malaise ENT/Mouth: No Hearing loss, No Ear Pain, No Nasal Congestion, No Sinus Pain, No Hoarseness, No sore throat, No Rhinorrhea, No Swallowing Difficulty Eyes: No Eye Pain, No Swelling, No Redness, No Foreign Body, No Discharge, No Vision Changes Cardiovascular: No Chest Pain, No SOB, No Dyspnea on Exertion, No Orthopnea, No Edema, No Palpitations Respiratory: No Cough, No Sputum, No Wheezing, No Smoke Exposure, No Dyspnea Gastrointestinal: No Nausea, No Vomiting, No Diarrhea, No Constipation, No abdominal Pain, No Hematochezia, No Melena Genitourinary: no irregular bleeding, No Dysuria, No Urinary Frequency, No Hematuria, No Urinary Incontinence, No Urgency, No Flank Pain, No Urinary Flow Changes, No Hesitancy Musculoskeletal: No joint pain, No Myalgias, No Joint Swelling Skin: No Skin Lesions, No rash Neuro: No Weakness, No Numbness, No Paresthesias, No Loss of Consciousness, No Dizziness, No Headache Psych: No Anxiety/Panic, No Depression, No SI/HI/AH/VH, No Social Issues, Heme/Lymph: No Bruising, No Bleeding,No Lymphadenopathy Endocrine: No Polyuria, No Polydipsia, No Temperature Intolerance Mental Status Exam Mental Status Exam Patient Appearance: Well Grooomed Patient Orientation: Person, Place, Time and Situation Level of Consciousness: Awake Patient Behavior: Appropriate and Talkative Mood Description: Calm Patient Cognition Impaired: No Ability to Follow Directions: Fair Speech Pattern: Clear Memory Description: Intact Diagnostics Vital Signs (24Hr): Vital Signs - 24 hr 09/11/20 18:00 09/11/20 20:03 09/11/20 21:01 Temperature 96.4 F L Pulse Rate 92 92 92 Respiratory Rate Blood Pressure 166/93 H 166/93 H 166/93 H Pulse Oximetry 09/12/20 06:20 Temperature 96.7 F L Pulse Rate 96 Respiratory Rate 18 Blood Pressure 135/65 Pulse Oximetry 95 Body Mass Index 48.3 Labs Results: 08/29/20 16:05 08/29/20 16:05 Medications Medications Current Medications Generic Name Dose Route Start Last Admin Trade Name Freq PRN Reason Stop Dose Admin Al Hydroxide/Mg Hydroxide 30 ml 09/01/20 21:23 Magnesium Hydrox/Alum Hydrox 30 Ml Oral.Susp PO Q6H PRN Heartburn/Nausea Amitriptyline HCl 25 mg 08/29/20 21:00 09/11/20 20:01 Amitriptyline Hcl 25 Mg Tablet PO 25 mg BEDTIME AZUL Administration Buprenorphine HCl 2 mg 08/31/20 09:00 09/11/20 08:40 Buprenorphine Hcl 2 Mg Tab.Subl SUBLINGUAL 2 mg DAILY AZUL Administration Bupropion HCl 150 mg 09/03/20 09:22 09/11/20 14:04 Bupropion Hcl 100 Mg Tablet PO 150 mg BID@0830,1330 AZUL Administration Celecoxib 100 mg 08/29/20 16:58 09/11/20 18:57 Celecoxib 100 Mg Capsule PO 100 mg BID PRN Administration Pain Clonidine HCl 0.1 mg 08/29/20 16:58 09/11/20 21:01 Clonidine Hcl 0.1 Mg Tablet PO 0.1 mg QID PRN Administration Anxiety Protocol Cyclobenzaprine HCl 5 mg 08/29/20 21:00 09/11/20 18:57 Cyclobenzaprine Hcl 5 Mg Tablet PO 5 mg TID PRN Administration Muscle Spasm Fluticasone Propionate 1 spray 08/29/20 16:58 Fluticasone Propionate Nasal 16 Gm [place] NOSTRIL-B DAILY PRN Allergy Symptoms Gabapentin 800 mg 08/29/20 21:00 09/11/20 20:02 Gabapentin 400 Mg Capsule PO 800 mg TID AZUL Administration Haloperidol 5 mg 09/04/20 21:00 09/11/20 20:02 Haloperidol 5 Mg Tablet PO 5 mg BID AZUL Administration Loratadine 10 mg 08/30/20 11:29 Loratadine 10 Mg Tablet PO DAILY PRN Allergic Symptoms Magnesium Hydroxide 30 ml 09/01/20 21:23 Milk Of Magnesia 30 Ml Oral.Susp PO DAILY PRN Constipation Multi-Ingred Cream/Lotion/Oil/Oint 1 appl 09/05/20 21:00 09/11/20 22:02 Mineral Oil/Petrolatum,White 106 Gm Tube TOPICAL Not Given TID [facility] Nicotine 21 mg 08/30/20 09:00 09/11/20 08:41 Nicotine 21 Mg Patch.Td24 TRANSDERMA 21 mg DAILY AZUL Administration Nicotine Polacrilex 2 mg 08/29/20 17:24 09/11/20 18:59 Nicotine Polacrilex 2 Mg Lozenge BUCCAL 2 mg Q2H PRN Administration Nicotine Cravings Ondansetron HCl 4 mg 08/29/20 16:58 Ondansetron Odt 4 Mg Tab.Rapdis TRANSLINGU DAILY PRN Nausea Oxcarbazepine 300 mg 08/29/20 21:00 09/11/20 20:02 Oxcarbazepine 300 Mg Tablet PO 300 mg BID AZUL Administration Oxybutynin Chloride 10 mg 08/30/20 09:00 09/11/20 08:38 Oxybutynin Chloride Er 5 Mg Tab.Er.24 PO 10 mg DAILY AZUL Administration Prazosin HCl 3 mg 08/29/20 21:00 09/11/20 20:03 Prazosin Hcl 1 Mg Capsule PO 3 mg BEDTIME AZUL Administration Protocol Trazodone HCl 100 mg 08/29/20 16:58 09/11/20 22:00 Trazodone Hcl 100 Mg Tablet PO 100 mg BEDTIME PRN Administration Sleep Allergies Allergies Allergy/AdvReac Type Severity Reaction Status Date / Time bee pollen [bee stings] Allergy Swelling Verified 08/29/20 16:30 shellfish derived Allergy Swelling Verified 08/29/20 16:30 ibuprofen [From Motrin] AdvReac Abdominal Verified 08/29/20 16:30 Pain iron AdvReac Abdominal Verified 08/29/20 16:30 Pain naloxone AdvReac Vomiting Verified 08/29/20 16:30 Assessment & Plan Assessment & Plan (1) Polysubstance dependence in early, early partial, sustained full, or sustained partial remission: Status: Acute Code(s): F19.21 - Other psychoactive substance dependence, in remission (2) Posttraumatic stress disorder: Status: Acute Code(s): F43.10 - Post-traumatic stress disorder, unspecified Assessment and Plan: Ct Haldol Ct meds CSS pending Greater than 50% of the session was spent on counseling and/or coordination of care
[2020-09-12] MEDS: buPROPion HCL 100 MG TABLET 150 MG PO ×2 (08:52→14:27)
[2020-09-12] MEDS: OXcarbazepine 300 MG TABLET PO ×2 (08:52→19:57)
[2020-09-12] MEDS: Buprenorphine HCL 2 MG TAB.SUBL SUBLINGUAL (08:52)
[2020-09-12] MEDS: Gabapentin 400 MG CAPSULE 800 MG PO ×3 (08:53→19:59)
[2020-09-12] MEDS: HaloperidoL 5 MG TABLET PO ×2 (08:53→19:58)
[2020-09-12] MEDS: Nicotine 21 MG PATCH.TD24 TRANSDERMA (09:22)
[2020-09-12] MEDS: Mineral Oil/Petrolatum,White 106 GM Tube 1 APPL TOPICAL ×2 (12:24→14:36)
[2020-09-12] MEDS: Cyclobenzaprine HCl 5 MG TABLET PO (15:11)
[2020-09-12 18:00] VITALS: BP 155/87; PULSE 91; TEMP 36.7
[2020-09-12] MEDS: Amitriptyline HCl 25 MG TABLET PO (19:57)
[2020-09-12 19:58] VITALS: BP 155/87; PULSE 91
[2020-09-12] MEDS: Prazosin HCL 1 MG CAPSULE 3 MG PO (19:58)
[2020-09-12] MEDS: traZODone HCL 100 MG TABLET PO (21:49)
[2020-09-13 06:20] VITALS: BP 147/74; PULSE 92; RESP 16; TEMP 36.4; O2SAT 95
[2020-09-13] MEDS: Nicotine 21 MG PATCH.TD24 TRANSDERMA (09:29)
[2020-09-13] MEDS: Gabapentin 400 MG CAPSULE 800 MG PO ×3 (09:30→20:28)
[2020-09-13] MEDS: Buprenorphine HCL 2 MG TAB.SUBL SUBLINGUAL (09:30)
[2020-09-13] MEDS: HaloperidoL 5 MG TABLET PO ×2 (09:31→20:28)
[2020-09-13] MEDS: buPROPion HCL 100 MG TABLET 150 MG PO ×2 (09:31→14:21)
[2020-09-13] MEDS: OXcarbazepine 300 MG TABLET PO ×2 (09:31→20:28)
[2020-09-13] MEDS: Mineral Oil/Petrolatum,White 106 GM Tube 1 APPL TOPICAL ×3 (10:17→20:32)
--- NOTE | 2020-09-13 14:34 | P.PNPSI_ITS ---
Subjective Subjective Date of Service: 09/13/20 Reason For Visit: crisis Interim History: Stable mood but reports anxiety. Poor boundaries with peers but no incident in past 24 hours. DC Mon to CSS/[facility] Review of Systems Review of Systems Constitutional: No Weight loss, No Fever, No Chills, No Night Sweats, No Fatigue, No Malaise ENT/Mouth: No Hearing loss, No Ear Pain, No Nasal Congestion, No Sinus Pain, No Hoarseness, No sore throat, No Rhinorrhea, No Swallowing Difficulty Eyes: No Eye Pain, No Swelling, No Redness, No Foreign Body, No Discharge, No Vision Changes Cardiovascular: No Chest Pain, No SOB, No Dyspnea on Exertion, No Orthopnea, No Edema, No Palpitations Respiratory: No Cough, No Sputum, No Wheezing, No Smoke Exposure, No Dyspnea Gastrointestinal: No Nausea, No Vomiting, No Diarrhea, No Constipation, No abdominal Pain, No Hematochezia, No Melena Genitourinary: no irregular bleeding, No Dysuria, No Urinary Frequency, No Hematuria, No Urinary Incontinence, No Urgency, No Flank Pain, No Urinary Flow Changes, No Hesitancy Musculoskeletal: No joint pain, No Myalgias, No Joint Swelling Skin: No Skin Lesions, No rash Neuro: No Weakness, No Numbness, No Paresthesias, No Loss of Consciousness, No Dizziness, No Headache Psych: No Anxiety/Panic, No Depression, No SI/HI/AH/VH, No Social Issues, Heme/Lymph: No Bruising, No Bleeding,No Lymphadenopathy Endocrine: No Polyuria, No Polydipsia, No Temperature Intolerance Mental Status Exam Mental Status Exam Patient Appearance: Well Grooomed Patient Orientation: Person, Place, Time and Situation Level of Consciousness: Awake Patient Behavior: Appropriate and Talkative Mood Description: Calm Affect Description: Labile Patient Cognition Impaired: No Ability to Follow Directions: Fair Speech Pattern: Clear Memory Description: Intact Diagnostics Vital Signs (24Hr): Vital Signs - 24 hr 09/12/20 18:00 09/12/20 19:58 09/13/20 06:20 Temperature 98.1 F 97.6 F Pulse Rate 91 91 92 Respiratory Rate 16 Blood Pressure 155/87 H 155/87 H 147/74 H Pulse Oximetry 95 Body Mass Index 48.3 Labs Results: 08/29/20 16:05 08/29/20 16:05 Medications Medications Current Medications Generic Name Dose Route Start Last Admin Trade Name Freq PRN Reason Stop Dose Admin Al Hydroxide/Mg Hydroxide 30 ml 09/01/20 21:23 Magnesium Hydrox/Alum Hydrox 30 Ml Oral.Susp PO Q6H PRN Heartburn/Nausea Amitriptyline HCl 25 mg 08/29/20 21:00 09/12/20 19:57 Amitriptyline Hcl 25 Mg Tablet PO 25 mg BEDTIME AZUL Administration Buprenorphine HCl 2 mg 08/31/20 09:00 09/13/20 09:30 Buprenorphine Hcl 2 Mg Tab.Subl SUBLINGUAL 2 mg DAILY AZUL Administration Bupropion HCl 150 mg 09/03/20 09:22 09/13/20 14:21 Bupropion Hcl 100 Mg Tablet PO 150 mg BID@0830,1330 AZUL Administration Celecoxib 100 mg 08/29/20 16:58 09/11/20 18:57 Celecoxib 100 Mg Capsule PO 100 mg BID PRN Administration Pain Clonidine HCl 0.1 mg 08/29/20 16:58 09/11/20 21:01 Clonidine Hcl 0.1 Mg Tablet PO 0.1 mg QID PRN Administration Anxiety Protocol Cyclobenzaprine HCl 5 mg 08/29/20 21:00 09/12/20 15:11 Cyclobenzaprine Hcl 5 Mg Tablet PO 5 mg TID PRN Administration Muscle Spasm Fluticasone Propionate 1 spray 08/29/20 16:58 Fluticasone Propionate Nasal 16 Gm [place] NOSTRIL-B DAILY PRN Allergy Symptoms Gabapentin 800 mg 08/29/20 21:00 09/13/20 14:21 Gabapentin 400 Mg Capsule PO 800 mg TID AZUL Administration Haloperidol 5 mg 09/04/20 21:00 09/13/20 09:31 Haloperidol 5 Mg Tablet PO 5 mg BID AZUL Administration Loratadine 10 mg 08/30/20 11:29 Loratadine 10 Mg Tablet PO DAILY PRN Allergic Symptoms Magnesium Hydroxide 30 ml 09/01/20 21:23 Milk Of Magnesia 30 Ml Oral.Susp PO DAILY PRN Constipation Multi-Ingred Cream/Lotion/Oil/Oint 1 appl 09/05/20 21:00 09/13/20 10:17 Mineral Oil/Petrolatum,White 106 Gm Tube TOPICAL 1 appl TID AZUL Administration Nicotine 21 mg 08/30/20 09:00 09/13/20 09:29 Nicotine 21 Mg Patch.Td24 TRANSDERMA 21 mg DAILY AZUL Administration Nicotine Polacrilex 2 mg 08/29/20 17:24 09/12/20 15:11 Nicotine Polacrilex 2 Mg Lozenge BUCCAL 2 mg Q2H PRN Administration Nicotine Cravings Ondansetron HCl 4 mg 08/29/20 16:58 Ondansetron Odt 4 Mg Tab.Rapdis TRANSLINGU DAILY PRN Nausea Oxcarbazepine 300 mg 08/29/20 21:00 09/13/20 09:31 Oxcarbazepine 300 Mg Tablet PO 300 mg BID AZUL Administration Oxybutynin Chloride 10 mg 08/30/20 09:00 09/13/20 09:31 Oxybutynin Chloride Er 5 Mg Tab.Er.24 PO 10 mg DAILY AZUL Administration Prazosin HCl 3 mg 08/29/20 21:00 09/12/20 19:58 Prazosin Hcl 1 Mg Capsule PO 3 mg BEDTIME AZUL Administration Protocol Trazodone HCl 100 mg 08/29/20 16:58 09/12/20 21:49 Trazodone Hcl 100 Mg Tablet PO 100 mg BEDTIME PRN Administration Sleep Allergies Allergies Allergy/AdvReac Type Severity Reaction Status Date / Time bee pollen [bee stings] Allergy Swelling Verified 08/29/20 16:30 shellfish derived Allergy Swelling Verified 08/29/20 16:30 ibuprofen [From Motrin] AdvReac Abdominal Verified 08/29/20 16:30 Pain iron AdvReac Abdominal Verified 08/29/20 16:30 Pain naloxone AdvReac Vomiting Verified 08/29/20 16:30 Assessment & Plan Assessment & Plan (1) Polysubstance dependence in early, early partial, sustained full, or sustained partial remission: Status: Acute Code(s): F19.21 - Other psychoactive substance dependence, in remission (2) Posttraumatic stress disorder: Status: Acute Code(s): F43.10 - Post-traumatic stress disorder, unspecified Assessment and Plan: Ct Haldol Ct meds CSS pending Greater than 50% of the session was spent on counseling and/or coordination of care
[2020-09-13 20:10] VITALS: BP 145/76; PULSE 81; TEMP 36.6
[2020-09-13 20:26] VITALS: BP 145/76; PULSE 81
[2020-09-13] MEDS: Prazosin HCL 1 MG CAPSULE 3 MG PO (20:26)
[2020-09-13] MEDS: Amitriptyline HCl 25 MG TABLET PO (20:27)
[2020-09-14] MEDS: traZODone HCL 100 MG TABLET PO ×2 (00:36→22:25)
[2020-09-14 06:20] VITALS: BP 131/56; PULSE 90; RESP 18; TEMP 36.4; O2SAT 96
[2020-09-14] MEDS: buPROPion HCL 100 MG TABLET 150 MG PO ×2 (08:47→14:06)
[2020-09-14] MEDS: Nicotine 21 MG PATCH.TD24 TRANSDERMA (08:47)
[2020-09-14] MEDS: HaloperidoL 5 MG TABLET PO ×2 (08:49→20:26)
[2020-09-14] MEDS: Gabapentin 400 MG CAPSULE 800 MG PO ×3 (08:49→20:26)
[2020-09-14] MEDS: Buprenorphine HCL 2 MG TAB.SUBL SUBLINGUAL (08:49)
[2020-09-14] MEDS: Mineral Oil/Petrolatum,White 106 GM Tube 1 APPL TOPICAL ×2 (09:03→15:03)
[2020-09-14] MEDS: OXcarbazepine 300 MG TABLET PO ×2 (09:03→20:26)
--- NOTE | 2020-09-14 09:56 | P.PNPSI_ITS ---
Subjective Subjective Date of Service: 09/14/20 Reason For Visit: crisis Interim History: Stable mood but reports anxiety. Poor boundaries with peers . Remains provocative.Pre-Dc anxiety noted. DC Mon to CSS/correction Review of Systems Review of Systems Constitutional: No Weight loss, No Fever, No Chills, No Night Sweats, No Fatigue, No Malaise ENT/Mouth: No Hearing loss, No Ear Pain, No Nasal Congestion, No Sinus Pain, No Hoarseness, No sore throat, No Rhinorrhea, No Swallowing Difficulty Eyes: No Eye Pain, No Swelling, No Redness, No Foreign Body, No Discharge, No Vision Changes Cardiovascular: No Chest Pain, No SOB, No Dyspnea on Exertion, No Orthopnea, No Edema, No Palpitations Respiratory: No Cough, No Sputum, No Wheezing, No Smoke Exposure, No Dyspnea Gastrointestinal: No Nausea, No Vomiting, No Diarrhea, No Constipation, No abdominal Pain, No Hematochezia, No Melena Genitourinary: no irregular bleeding, No Dysuria, No Urinary Frequency, No Hematuria, No Urinary Incontinence, No Urgency, No Flank Pain, No Urinary Flow Changes, No Hesitancy Musculoskeletal: No joint pain, No Myalgias, No Joint Swelling Skin: No Skin Lesions, No rash Neuro: No Weakness, No Numbness, No Paresthesias, No Loss of Consciousness, No Dizziness, No Headache Psych: No Anxiety/Panic, No Depression, No SI/HI/AH/VH, No Social Issues, Heme/Lymph: No Bruising, No Bleeding,No Lymphadenopathy Endocrine: No Polyuria, No Polydipsia, No Temperature Intolerance Mental Status Exam Mental Status Exam Patient Appearance: Well Grooomed Patient Orientation: Person, Place, Time and Situation Level of Consciousness: Awake Patient Behavior: Appropriate and Talkative Mood Description: Calm Affect Description: Labile Patient Cognition Impaired: No Ability to Follow Directions: Fair Speech Pattern: Clear Memory Description: Intact Diagnostics Vital Signs (24Hr): Vital Signs - 24 hr 09/13/20 20:10 09/13/20 20:26 09/14/20 06:20 Temperature 97.9 F 97.6 F Pulse Rate 81 81 90 Respiratory Rate 18 Blood Pressure 145/76 H 145/76 H 131/56 L Pulse Oximetry 96 Body Mass Index 48.3 Labs Results: 08/29/20 16:05 08/29/20 16:05 Medications Medications Current Medications Generic Name Dose Route Start Last Admin Trade Name Freq PRN Reason Stop Dose Admin Al Hydroxide/Mg Hydroxide 30 ml 09/01/20 21:23 Magnesium Hydrox/Alum Hydrox 30 Ml Oral.Susp PO Q6H PRN Heartburn/Nausea Amitriptyline HCl 25 mg 08/29/20 21:00 09/13/20 20:27 Amitriptyline Hcl 25 Mg Tablet PO 25 mg BEDTIME AZUL Administration Buprenorphine HCl 2 mg 08/31/20 09:00 09/14/20 08:49 Buprenorphine Hcl 2 Mg Tab.Subl SUBLINGUAL 2 mg DAILY AUZL Administration Bupropion HCl 150 mg 09/03/20 09:22 09/14/20 08:47 Bupropion Hcl 100 Mg Tablet PO 150 mg BID@0830,1330 AZUL Administration Celecoxib 100 mg 08/29/20 16:58 09/11/20 18:57 Celecoxib 100 Mg Capsule PO 100 mg BID PRN Administration Pain Clonidine HCl 0.1 mg 08/29/20 16:58 09/11/20 21:01 Clonidine Hcl 0.1 Mg Tablet PO 0.1 mg QID PRN Administration Anxiety Protocol Cyclobenzaprine HCl 5 mg 08/29/20 21:00 09/12/20 15:11 Cyclobenzaprine Hcl 5 Mg Tablet PO 5 mg TID PRN Administration Muscle Spasm Fluticasone Propionate 1 spray 08/29/20 16:58 Fluticasone Propionate Nasal 16 Gm [place] NOSTRIL-B DAILY PRN Allergy Symptoms Gabapentin 800 mg 08/29/20 21:00 09/14/20 08:49 Gabapentin 400 Mg Capsule PO 800 mg TID AZUL Administration Haloperidol 5 mg 09/04/20 21:00 09/14/20 08:49 Haloperidol 5 Mg Tablet PO 5 mg BID AZUL Administration Loratadine 10 mg 08/30/20 11:29 Loratadine 10 Mg Tablet PO DAILY PRN Allergic Symptoms Magnesium Hydroxide 30 ml 09/01/20 21:23 Milk Of Magnesia 30 Ml Oral.Susp PO DAILY PRN Constipation Multi-Ingred Cream/Lotion/Oil/Oint 1 appl 09/05/20 21:00 09/13/20 20:32 Mineral Oil/Petrolatum,White 106 Gm Tube TOPICAL 1 appl TID AZUL Administration Nicotine 21 mg 08/30/20 09:00 09/14/20 08:47 Nicotine 21 Mg Patch.Td24 TRANSDERMA 21 mg DAILY AZUL Administration Nicotine Polacrilex 2 mg 08/29/20 17:24 09/12/20 15:11 Nicotine Polacrilex 2 Mg Lozenge BUCCAL 2 mg Q2H PRN Administration Nicotine Cravings Ondansetron HCl 4 mg 08/29/20 16:58 Ondansetron Odt 4 Mg Tab.Rapdis TRANSLINGU DAILY PRN Nausea Oxcarbazepine 300 mg 08/29/20 21:00 09/13/20 20:28 Oxcarbazepine 300 Mg Tablet PO 300 mg BID AZUL Administration Oxybutynin Chloride 10 mg 08/30/20 09:00 09/14/20 08:48 Oxybutynin Chloride Er 5 Mg Tab.Er.24 PO 10 mg DAILY AZUL Administration Prazosin HCl 3 mg 08/29/20 21:00 09/13/20 20:26 Prazosin Hcl 1 Mg Capsule PO 3 mg BEDTIME AZUL Administration Protocol Trazodone HCl 100 mg 08/29/20 16:58 09/14/20 00:36 Trazodone Hcl 100 Mg Tablet PO 100 mg BEDTIME PRN Administration Sleep Allergies Allergies Allergy/AdvReac Type Severity Reaction Status Date / Time bee pollen [bee stings] Allergy Swelling Verified 08/29/20 16:30 shellfish derived Allergy Swelling Verified 08/29/20 16:30 ibuprofen [From Motrin] AdvReac Abdominal Verified 08/29/20 16:30 Pain iron AdvReac Abdominal Verified 08/29/20 16:30 Pain naloxone AdvReac Vomiting Verified 08/29/20 16:30 Assessment & Plan Assessment & Plan (1) Polysubstance dependence in early, early partial, sustained full, or sustained partial remission: Status: Acute Code(s): F19.21 - Other psychoactive substance dependence, in remission (2) Posttraumatic stress disorder: Status: Acute Code(s): F43.10 - Post-traumatic stress disorder, unspecified Assessment and Plan: Ct Haldol Ct meds CSS pending Greater than 50% of the session was spent on counseling and/or coordination of care
[2020-09-14 16:13] VITALS: BP 134/80; PULSE 90
[2020-09-14] MEDS: cloNIDine HCL 0.1 MG TABLET PO ×2 (16:13→20:29)
[2020-09-14] MEDS: Cyclobenzaprine HCl 5 MG TABLET PO (16:13)
[2020-09-14] MEDS: Celecoxib 100 MG CAPSULE PO (16:21)
[2020-09-14 18:00] VITALS: PULSE 85; TEMP 36.5
[2020-09-14 20:25] VITALS: BP 135/88; PULSE 85
[2020-09-14] MEDS: Prazosin HCL 1 MG CAPSULE 3 MG PO (20:25)
[2020-09-14] MEDS: Amitriptyline HCl 25 MG TABLET PO (20:26)
[2020-09-14 20:29] VITALS: BP 135/88; PULSE 85
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
[2020-09-15] MEDS: Gabapentin 400 MG CAPSULE 800 MG PO ×2 (09:10→13:55)
[2020-09-15] MEDS: buPROPion HCL 100 MG TABLET 150 MG PO ×2 (09:11→13:55)
[2020-09-15] MEDS: HaloperidoL 5 MG TABLET PO (09:12)
[2020-09-15] MEDS: Nicotine 21 MG PATCH.TD24 TRANSDERMA (09:13)
[2020-09-15] MEDS: OXcarbazepine 300 MG TABLET PO (09:13)
[2020-09-15] MEDS: Mineral Oil/Petrolatum,White 106 GM Tube 1 APPL TOPICAL ×2 (09:30→13:55)
[2020-09-15] MEDS: Buprenorphine HCL 2 MG TAB.SUBL SUBLINGUAL (09:55)
[2020-09-15 09:59] VITALS: BP 133/74; PULSE 76; TEMP 36.3; O2SAT 97
[2020-09-15 11:51] VITALS: BP 143/74; PULSE 82
[2020-09-15] MEDS: cloNIDine HCL 0.1 MG TABLET PO (11:51)
[2020-09-15] MEDS: Cyclobenzaprine HCl 5 MG TABLET PO (11:51)
[2020-09-15] MEDS: Celecoxib 100 MG CAPSULE PO (11:51)
[2020-09-15 11:53] VITALS: BP 143/74; PULSE 82
== END 2020-09-15 14:47 | disposition home or self-care (01) | DRG 755 ==
LOC: HO.ED 09-01 21:23 → HO.PM5 09-01 21:42
PROVIDERS: Nurse Practitioner Family; Admitting Provider Psychiatry & Neurology Psychiatry; Emergency Provider Emergency Medicine Emergency Medical Services; PCP Physician Assistant Medical; Visit Provider Psychiatry & Neurology Psychiatry
DX: F43.10 Post-traumatic stress disorder, unspecified (principal); R45.851 Suicidal ideations; F19.21 Other psychoactive substance dependence, in remission; F17.210 Nicotine dependence, cigarettes, uncomplicated; J45.909 Unspecified asthma, uncomplicated; Z20.828 Contact with and (suspected) exposure to other viral communicable diseases; Z71.6 Tobacco abuse counseling; Z88.6 Allergy status to analgesic agent; Z79.1 Long term (current) use of non-steroidal anti-inflammatories (NSAID); Z79.51 Long term (current) use of inhaled steroids; Z79.899 Other long term (current) drug therapy
CPT/HCPCS: 36415; 80053; 80061; 80307; 80320; 81025; 82947; 85025; 87635; 99223; 99232; 99239; 99285; G0480; J0571; Q0163